=== PATIENT | male | born 1935 | race Caucasian/White ===

== ENCOUNTER → 2016-09-15 | Outpatient (CLI) | payer MEDICARE, OTHER ==
[2016-09-15 18:04] LABS: ABSOLUTE BASOPHILS # (AUTO) 0.1 10^3/uL (0.0-0.2); ABSOLUTE EOSINOPHILS # (AUTO) 0.5 10^3/uL (0.0-0.6); ABSOLUTE LYMPHOCYTES (AUTO) 0.8 10^3/uL (0.5-4.7); ABSOLUTE MONOCYTES (AUTO) 0.9 10^3/uL (0.1-1.4); ABSOLUTE NEUT (AUTO) 4.8 10^3/uL (1.7-8.2); BASOPHILS % (AUTO) 1.1 % (0-2); EOSINOPHILS % (AUTO) 6.8 % (0-6); HEMATOCRIT 39.8 % (37.9-51.0); HEMOGLOBIN 12.9 g/dL (13.5-17.0); HGB HCT DIFFERENCE -1.1; MEAN CORPUSCULAR HEMOGLOBIN 27.9 pg (27.0-33.4); MEAN CORPUSCULAR HGB CONC 32.5 g/dL (32.0-36.0); MEAN CORPUSCULAR VOLUME 86 fl (80-97); MONOCYTES % (AUTO) 13.4 % (3-13); RED BLOOD COUNT 4.64 10^6/uL (4.35-5.55); RED CELL DISTRIBUTION WIDTH 18.3 % (11.5-14.0); SEGMENTED NEUTROPHILS % (AUTO) 67.7 % (42-78)
[2016-09-15 18:09] LABS: PROTHROMBIN TIME 13.3 SEC (11.4-15.4)
[2016-09-15 18:09] LABS: APPEARANCE,URINE CLEAR; BILIRUBIN,URINE NEGATIVE (NEGATIVE); GLUCOSE, URINE NEGATIVE (NEGATIVE); KETONES,URINE NEGATIVE (NEGATIVE); LEUKOCYTE ESTERASE,URINE NEGATIVE (NEGATIVE); NITRITE,URINE NEGATIVE (NEGATIVE); PROTEIN,URINE NEGATIVE (NEGATIVE); UROBILINOGEN,URINE NEGATIVE mg/dL (<2.0)
[2016-09-15 18:16] LABS: ANION GAP 14 (5-19); BLOOD UREA NITROGEN 26 mg/dL (7-20); CALCIUM 9.2 mg/dL (8.4-10.2); CARBON DIOXIDE 30 mmol/L (22-30); CHLORIDE 103 mmol/L (98-107); CREATININE RESULT 1.95 mg/dL (0.52-1.25); GLUCOSE 95 mg/dL (75-110); MAGNESIUM 2.1 mg/dL (1.6-2.3); POTASSIUM 3.8 mmol/L (3.6-5.0); SODIUM 146.6 mmol/L (137-145)
== END ==
LOC: OD 16:32
PROVIDERS: ATTEND Internal Medicine Cardiovascular Disease
DX: I50.9 Heart failure, unspecified (principal)
CPT/HCPCS: 36415; 80048; 81001; 83735; 85025; 85610

== ENCOUNTER 2017-03-18 14:26 | Inpatient (IN) | payer MEDICARE, OTHER ==
--- NOTE | 2017-03-18 14:31 | ER Document Report ---
ED Neuro Symptoms/Deficit - General Mode of Arrival: Medic Information source: Patient TRAVEL OUTSIDE OF THE [place] IN LAST 30 DAYS: No <JIGNESH FORBES - Last Filed: 03/20/17 18:40> <CURTIS OROZCO - Last Filed: 03/24/17 22:58> - General Stated Complaint: UNRESPONSIVE Notes: Patient is a 81 year old female that presents to the emergency department today with complaints of stroke-like symptoms. According to EMS, the patient's last known well was last night. EMS states the patient had no right sided movement for them and had a lateral left sided gaze. Patient was also aphasic the entire time with EMS. Patient is on Brilenta for A-fib. Son at bedside is not sure if the patient has or has not been taking his medications. Patient had a cardiac arrest in June of 2016 but has recovered from this quite well. Son states the patient has been swimming every morning and staying quite active since this cardiac event. History is limited secondary to the patient being aphasic. (JIGNESH FORBES) - Related Data Allergies/Adverse Reactions: No Known Allergies Allergy (Verified 03/18/17 14:53) Home Medications: Current Home Medications Atorvastatin Calcium [Lipitor 80 mg Tablet] 80 mg PO DAILY 03/18/17 [History] Carvedilol [Coreg 12.5 mg Tablet] 12.5 mg PO Q12 03/18/17 [History] Furosemide [Lasix 20 mg Tablet] 20 mg PO QAM 03/18/17 [History] Montelukast Sodium [Singulair 10 mg Tablet] 10 mg PO QPM 03/18/17 [History] Omeprazole 20 mg PO BID 03/18/17 [History] Potassium Chloride 20 meq PO DAILY 03/18/17 [History] Sacubitril/Valsartan [Entresto 49 mg/51 mg Tablet] 1 tab PO DAILY 03/18/17 [ History] Tamsulosin HCl [Flomax 0.4 mg Cap.sr] 0.8 mg PO DAILY 03/18/17 [History] Ticagrelor [Brilinta 90 mg Tablet] 90 mg PO BID 03/18/17 [History] Past Medical History - General Information source: [facility] Records Cannot obtain history due to: Altered mental status - Social History Smoking Status: Unknown if Ever Smoked Cigarette use (# per day): No Frequency of alcohol use: None Drug Abuse: None Family History: Reviewed & Not Pertinent - Past Medical History Cardiac Medical History: Reports: Hx Atrial Fibrillation Past Surgical History: Reports: Hx Pacemaker - w/ defib <JIGNESH FORBES - Last Filed: 03/20/17 18:40> Review of Systems - Review of Systems -: Yes ROS unobtainable due to patient's medical condition <JIGNESH FORBES - Last Filed: 03/20/17 18:40> Physical Exam <JIGNESH FORBES - Last Filed: 03/20/17 18:40> - Neurological Speech: Expressive aphasia Cranial nerves: Facial palsy - R Motor strength normal: LUE, LLE. No: RUE, RLE Additional motor exam normals: No: Equal expediter <CURTIS OROZCO - Last Filed: 03/24/17 22:58> - Vital signs Vitals: Pulse Resp BP Pulse Ox 75 18 178/112 H 97 03/18/17 14:31 03/18/17 14:31 03/18/17 14:31 03/18/17 14:31 - Notes Notes: Physical Exam: General: Left sided gaze, non-verbal. HEENT: Normocephalic. PERRL. Spontaneously opens eyes with left sided gaze. Oropharynx clear. Tongue laceration consistent with bite keshav. Dry mucous membranes. Neck: Supple. Non-tender. Respiratory: No respiratory distress. Clear and equal breath sounds bilaterally. Cardiovascular: Regular rate and rhythm. Abdominal: Normal Inspection. Non-tender. No distension. Normal Bowel Sounds. Back: Non-tender. No deformity or step off. Extremities: Moves left arm, left leg, and now right leg, no right arm movement. Upper extremities: see above Lower extremities: see above Neurological: Non-verbal. Left sided gaze. Psychological: unable to assess Skin: Warm. Dry. Normal color. (JINGESH FORBES) Course - Laboratory Result Diagrams: 03/20/17 05:36 03/18/17 14:36 <JIGNESH FORBES - Last Filed: 03/20/17 18:40> - Laboratory Result Diagrams: 03/23/17 06:24 03/23/17 06:24 <CURTIS OROZCO - Last Filed: 03/24/17 22:58> - Re-evaluation Re-evalutation: 03/18/17 Patient is a 81-year-old male who presents with right-sided weakness, right- sided facial droop, and left gaze initially. CT is showing an acute left MCA stroke. Patient is outside the window for lytics. Patient has been discussed with family. Patient will be referred to the hospitalist service. I have contacted Dr. Cuevas who states that he has not seen the patient recently. Dr. Guillen will admit the patient. Stable time of admission. No recommendations at this time. (CURTIS OROZCO) - Vital Signs Vital signs: Temp Pulse Resp BP Pulse Ox 99.1 F 60 16 144/72 H 91 L 03/24/17 19:42 03/24/17 19:42 03/24/17 19:42 03/24/17 19:42 03/24/17 19:42 - Laboratory Laboratory results interpreted by me: 03/18/17 03/18/17 03/18/17 14:36 14:36 14:36 RDW 16.6 H Seg Neutrophils % 84.8 H Lymphocytes % 6.1 L APTT 37.5 H Creatinine 1.39 H Est GFR (Non-Af Amer) 49 L Glucose 114 H Total Bilirubin 1.6 H Direct Bilirubin 0.5 H Urine Ketones 03/18/17 14:56 RDW Seg Neutrophils % Lymphocytes % APTT Creatinine Est GFR (Non-Af Amer) Glucose Total Bilirubin Direct Bilirubin Urine Ketones TRACE H Critical Care Note - Critical Care Note Total time excluding time spent on procedures (mins): 45 - Evaluation and management of acute stroke, counseling patient and family, coordination of admission <CURTIS OROZCO - Last Filed: 03/24/17 22:58> Discharge <JIGNESH FORBES - Last Filed: 03/20/17 18:40> - Discharge Admitting Provider: Masha Guillen Unit Admitted: [facility] <CURITS OROZCO - Last Filed: 03/24/17 22:58> - Discharge Clinical Impression: Acute ischemic left MCA stroke Condition: Stable Disposition: ADMITTED INPATIENT Scribe Attestation: 03/19/17 00:00 I personally performed the services described in the documentation, reviewed and edited the documentation which was dictated to the scribe in my presence, and it accurately records my words and actions. (CURTIS OROZCO) Scribe Documentation - Scribe Written by Ramez:: Ramez Francisco, 03/20/2017 1840 acting as scribe for :: Marlo <JIGNESH FORBES - Last Filed: 03/20/17 18:40> ED Alteplase Inc/Exc Criteria - Inclusion Criteria: 1: Patient presented to ED within 3 hours of acute ischemic stroke symptom onset ? -: No 2: Did baseline CT exclude intracranial hemorrhage and/or other risk factors? -: Yes 3: Is the age of the patient 18 years of age or greater? -: Yes : If any of the above questions are answered "NO" then stop, patient is not a candidate for Alteplase, : If all of the above questions are answered "YES" then continue with Exclusion Criteria. - Exclusion Criteria: 1: Is there evidence of intracranial hemorrhage on baseline CT? -: No 2: Is there suspicion of subarachnoid hemorrhage (even if CT negative)? -: No 3: Is there a history of serious head trauma, recent previous stroke or NV within 3 months? 4: Does the patient have a clinical presentation consistent with NV or post-NV pericarditis? -: No 5: Is there history of intracranial hemorrhage? -: No 6: On repeated measurement is Systolic BP greater than 185mmHg or Diastolic BP greater that 110 mmHg and is aggressive treatment needed to reduce blood pressure to these limits (e.g. constant infusion of an anti-hypertensive)? -: No 7: Did the patient awake with stroke symptoms? 8: Has the patient had a lumbar puncture or an arterial puncture at a non- compressile site within 7 days? -: No 9: With in the last 14 days did the patient have surgery or major trauma? -: No 10: Is the patient or less than 2 weeks? -: No 11: Was there any active bleeding or acute trauma? -: No 12: Does the patient have intracranial neoplasm, arteriovenous malformation or aneurysm? -: No 13: Does the patient have abnormal glucose (less than 50 or greater than 400mg/ dl)? Record glucose in Comment. -: No 14: Patient has rapidly improving symptoms at the time Alteplase is to be Administered. -: No 15: Does the patient have any risks for bleeding, including but not limited to: a.: Current use of Coumadin with PT greater than 15 seconds or INR greater than 1.7. b.: Current use of Pradaxa (Dabigatran). c.: Heparin administereed within the past 48 hours and PTT elevated. d.: Platelet count less than 100,000/mm. e.: Major surgery or serious trauma within 14 days. f.: Gastrointestinal or gynecological urinary bleeding within 14 days. g.: Myocardial Infarction (NV) within 3 months. -: No : If the answer to any of the above questions is "YES" then stop, the patient is not a candidate for Alteplase. : If the answer to all of the above questions is "NO" then the patient may be eligible for the Administration of Alteplase. : If the patient is noted to have seizure activity at onset of Stroke symptoms; Consult Neurologist for further evaluation. - The patient is: -: Included and is eligible to receive Alteplase. *Initiate bed placement at higher level of care* --: No Reviewd risks & benefits of thrombolytic therapy: I have reviewed the risks and benefits of thrombolytic therapy with the patient and/or his/her family. -: Excluded and not eligible to receive Alteplase for the above exclusions. -: Excluded and not eligible to receive Alteplase for other reasons (specify in comments): --: Yes <CURTIS OROZCO Last Filed: 03/24/17 22:58>
[2017-03-18 14:51] LABS: ABSOLUTE BASOPHILS # (AUTO) 0.1 10^3/uL (0.0-0.2); ABSOLUTE LYMPHOCYTES (AUTO) 0.5 10^3/uL (0.5-4.7); ABSOLUTE MONOCYTES (AUTO) 0.6 10^3/uL (0.1-1.4); ABSOLUTE NEUT (AUTO) 6.9 10^3/uL (1.7-8.2); BASOPHILS % (AUTO) 0.8 % (0-2); EOSINOPHILS % (AUTO) 0.6 % (0-6); HEMATOCRIT 41.3 % (37.9-51.0); HEMOGLOBIN 13.8 g/dL (13.5-17.0); HGB HCT DIFFERENCE 0.1; LYMPHOCYTES % (AUTO) 6.1 % (13-45); MEAN CORPUSCULAR HEMOGLOBIN 28.4 pg (27.0-33.4); MEAN CORPUSCULAR HGB CONC 33.5 g/dL (32.0-36.0); MEAN CORPUSCULAR VOLUME 85 fl (80-97); MONOCYTES % (AUTO) 7.7 % (3-13); RED BLOOD COUNT 4.86 10^6/uL (4.35-5.55); RED CELL DISTRIBUTION WIDTH 16.6 % (11.5-14.0); SEGMENTED NEUTROPHILS % (AUTO) 84.8 % (42-78); WHITE BLOOD COUNT 8.2 10^3/uL (4.0-10.5)
[2017-03-18 14:53] LABS: PROTHROMBIN TIME 13.7 SEC (11.4-15.4)
[2017-03-18 14:54] LABS: PARTIAL THROMBOPLASTIN TIME 37.5 SEC (23.5-35.8)
[2017-03-18 14:56] LABS: VENOUS BLOOD BASE EXCESS -0.8 mmol/L; VENOUS BLOOD HCO3 24.2 mmol/L (20-32); VENOUS BLOOD PH 7.39 (7.30-7.42)
--- NOTE | 2017-03-18 15:04 | RADIOLOGY REPORT (SQ) ---
EXAM DESCRIPTION: CT HEAD WITHOUT COMPLETED DATE/TIME: 03/18/2017 2:47 pm REASON FOR STUDY: AMS COMPARISON: None. TECHNIQUE: Axial images acquired through the brain without intravenous contrast. Images reviewed wi th bone, brain and subdural windows. Images stored on PACS. All CT scanners at this facility use dose modulation, iterative reconstruction, and/or weight based d osing when appropriate to reduce radiation dose to as low as reasonably achievable (ALARA). [facility]: Dose Right [facility]: CareDose [facility]: Dose Right [facility]: Teradose 4D [facility]: Smart Slated RADIATION DOSE: Up-to-date CT equipment and radiation dose reduction techniques were employed. CTDIv ol: 64.6 mGy. DLP: 1163 mGy-cm. mGy. LIMITATIONS: Mild motion artifact FINDINGS: VENTRICLES: Normal size and contour. CEREBRUM: There is subtle loss of sy-white differentiation, with low attenuation involving the left insular cortex, external capsule, and lateral basal ganglia. These changes are best shown on axial images 18-21. This is worrisome for acute ischemic change. No superimposed acute hemorrhage. The chronic appearing small cortical and subcortical white matter infarct in the left posterior front al region best shown on axial images 23-25. No CT evidence of acute intracranial hemorrhage. No mass effect or midline shift. These findings were called to Dr. Sellers, 1442 hours 03/18/2017. CEREBELLUM: No masses. No hemorrhage. No alteration of density. No evidence for acute infarction. EXTRAAXIAL SPACES: No fluid collections. No masses. ORBITS AND GLOBE: No intra- or extraconal masses. Normal contour of globe without masses. CALVARIUM: No fracture. PARANASAL SINUSES: No fluid or mucosal thickening. SOFT TISSUES: No mass or hematoma. OTHER: No other significant finding. IMPRESSION: Acute nonhemorrhagic left MCA distribution infarct involving the left insular cortex, ex ternal capsule and lateral basal ganglia COMMENT: Pertinent findings on the imaging study reported as a CRITICAL RESULT to CURTIS Reyes DO at14:42 on 03/18/2017. Category of Critical Result: CT stroke alert TECHNICAL DOCUMENTATION: JOB ID: [id number] Quality ID # [id number]: Final reports with documentation of one or more dose reduction techniques (e.g., Au tomated exposure control, adjustment of the mA and/or kV according to patient size, use of iterative reconstruction technique) 2010 [employer]- All Rights Reserved
--- NOTE | 2017-03-18 15:07 | RADIOLOGY REPORT (SQ) ---
EXAM DESCRIPTION: CHEST SINGLE VIEW COMPLETED DATE/TIME: 03/18/2017 2:50 pm REASON FOR STUDY: AMS COMPARISON: None. EXAM PARAMETERS: NUMBER OF VIEWS: One view. TECHNIQUE: Single frontal radiographic view of the chest acquired. RADIATION DOSE: NA LIMITATIONS: None. FINDINGS: LUNGS AND PLEURA: Pulmonary vascular congestion with mild pulmonary edema. MEDIASTINUM AND HILAR STRUCTURES: No masses. Contour normal. HEART AND VASCULAR STRUCTURES: Cardiomegaly. BONES: No acute findings. HARDWARE: pacemaker/defibrillator. OTHER: No other significant finding. IMPRESSION: Cardiomegaly with mild pulmonary edema. TECHNICAL DOCUMENTATION: JOB ID: [id number]
[2017-03-18 15:18] LABS: APPEARANCE,URINE CLEAR; BILIRUBIN,URINE NEGATIVE (NEGATIVE); GLUCOSE, URINE NEGATIVE (NEGATIVE); KETONES,URINE TRACE mg/dL (NEGATIVE); LEUKOCYTE ESTERASE,URINE NEGATIVE (NEGATIVE); NITRITE,URINE NEGATIVE (NEGATIVE); PROTEIN,URINE NEGATIVE (NEGATIVE); URINE SPECIFIC GRAVITY 1.006; UROBILINOGEN,URINE NEGATIVE mg/dL (<2.0)
[2017-03-18 15:18] LABS: ALANINE AMINOTRANSFERASE 27 U/L (21-72); ALBUMIN 4.2 g/dL (3.5-5.0); ALKALINE PHOSPHATASE 117 U/L (38-126); ANION GAP 13 (5-19); ASPARTATE AMINO TRANSFERASE 18 U/L (17-59); BILIRUBIN,DIRECT 0.5 mg/dL (0.0-0.4); BILIRUBIN,TOTAL 1.6 mg/dL (0.2-1.3); BLOOD UREA NITROGEN 19 mg/dL (7-20); CALCIUM 9.3 mg/dL (8.4-10.2); CARBON DIOXIDE 25 mmol/L (22-30); CHLORIDE 107 mmol/L (98-107); CREATINE KINASE 64 U/L (55-170); CREATININE RESULT 1.39 mg/dL (0.52-1.25); GLUCOSE 114 mg/dL (75-110); POTASSIUM 3.9 mmol/L (3.6-5.0); SODIUM 144.8 mmol/L (137-145); TOTAL PROTEIN 7.8 g/dL (6.3-8.2)
[2017-03-18 15:30] LABS: CREATINE KINASE MB 1.08 ng/mL (<4.55); TROPONIN I 0.015 ng/mL
[2017-03-18] MEDS ORDERED: DEXTROSE 40% GEL 15 GM TUBE PO PRN ×2 (18:16)
[2017-03-18] MEDS ORDERED: GLUCAGON,HUMAN RECOMB 1 MG INJ SUBCUT PRN (18:16)
[2017-03-18] MEDS ORDERED: DEXTROSE 50%-WATER 25 GM/50 ML DISP.SYRIN IV PRN ×2 (18:16)
[2017-03-18] MEDS ORDERED: ONDANSETRON HCL INJ/PF 4 MG/2 ML SDV IV PRN (18:21)
[2017-03-18] MEDS ORDERED: ACETAMINOPHEN 650 MG SUPP.RECT PR PRN (18:21)
[2017-03-18] MEDS ORDERED: METOPROLOL TARTRATE PF/INJ 5 MG/5 ML SDV IV PRN (18:25)
[2017-03-18] MEDS: NORMAL SALINE 1000 ML 1,000 ML IV PRN (23:30)
[2017-03-19] MEDS: NORMAL SALINE 1000 ML 1,000 ML IV PRN ×2 (00:42→14:48)
[2017-03-19 06:57] LABS: CHOLESTEROL 168.99 mg/dL (0-200); Direct HDL 44 mg/dL (>40); TRIGLYCERIDES 92 mg/dL (<150)
[2017-03-19 07:08] LABS: DIRECT LDL 102 mg/dL (<100)
[2017-03-19] MEDS ORDERED: ENOXAPARIN SODIUM INJ 30 MG/0.3 ML DISP.SYRIN SUBCUT SCH (10:00)
--- NOTE | 2017-03-19 11:50 | PDOC H&P ---
History of Present Illness Admission Date/PCP: 03/18/17 18:16 dr crane Patient complains of: found down, nonverbal and not moving his Rt side History of Present Illness: KEVAN LACKEY is a 81 year old male with multiple medical problems dominated by recent (06/2016) cardiac arrest due to LAD occlusion saved by emergent PTCA and stenting at [facility] but with complicated recovery due to new onset afib, 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 He is normally very active now, engaged in swimming at the pool for exercise and to aid in weight loss and recovery. He was last seen and heard from the evening before presentation by his live-in grandson, who would normally spend the night but did not due to personal reasons and who arrived the morning of 03/18 only to find his grandfather lying on the bathroom floor grunting and unable to move. His eyes were open but he didn't seem to respond, couldn't talk and EMS called to find him with Rt hemiparesis and hemineglect transporting him to the hospital. Here ct head shows no bleed but suspicion for Lf MCA distribution acute infarct involving multiple regions/lobes as likely explanation. He is well outside the window for tPa and not a candidate anyway due to ongoing Brillinta use and recent GIB. We were asked to admit the patient for further eval and management. He remains nonverbal so hx is obtained from review of the chart and his son. Past Medical History Cardiac Medical History: Reports: Atrial Fibrillation - not on full anticoagulation due to need for Brillinta and recent GIB, Congestive Heart Failure, Myocardial Infarction, Hyperlipidema, Hypertension Pulmonary Medical History: Reports: None Neurological Medical History: Denies: Hemorrhagic CVA, Ischemic CVA, Seizures Endocrine Medical History: Reports: None Renal/ Medical History: Reports: Other - BPH Malignancy Medical History: Reports: None Psychiatric Medical History: Reports: None Past Surgical History Past Surgical History: Reports: Cardiac Catheterization, Pacemaker - w/ defib Social History Information Source: Relative Smoking Status: Never Smoker Frequency of Alcohol Use: Rare Hx Recreational Drug Use: No Drugs: None Hx Prescription Drug Abuse: No - Advance Directive Resuscitation Status: Full Code Family History Family History: Reviewed & Not Pertinent. denies: CVA Parental Family History Reviewed: Yes Children Family History Reviewed: Yes Sibling(s) Family History Reviewed.: Yes Medication/Allergy Home Medications: Atorvastatin Calcium [Lipitor 80 mg Tablet] 80 mg PO DAILY 03/18/17 Carvedilol [Coreg 12.5 mg Tablet] 12.5 mg PO Q12 03/18/17 Furosemide [Lasix 20 mg Tablet] 20 mg PO QAM 03/18/17 Montelukast Sodium [Singulair 10 mg Tablet] 10 mg PO QPM 03/18/17 Omeprazole 20 mg PO BID 03/18/17 Potassium Chloride 20 meq PO DAILY 03/18/17 Sacubitril/Valsartan [Entresto 49 mg/51 mg Tablet] 1 tab PO DAILY 03/18/17 Tamsulosin HCl [Flomax 0.4 mg Cap.sr] 0.8 mg PO DAILY 03/18/17 Ticagrelor [Brilinta 90 mg Tablet] 90 mg PO BID 03/18/17 Allergies/Adverse Reactions: No Known Allergies Allergy (Verified 03/18/17 14:53) Review of Systems ROS unobtainable: Due to mental status Physical Exam Vital Signs: Temp Pulse Resp BP Pulse Ox 98.1 F 61 20 152/52 H 98 03/19/17 07:35 03/19/17 08:00 03/19/17 08:00 03/19/17 08:00 03/19/17 08:00 Intake & Output 03/18/17 03/19/17 03/20/17 06:59 06:59 06:59 Intake Total 450 Output Total 1650 Balance -1200 Weight 96.1 kg General appearance: PRESENT: no acute distress - nonverbal, obese, well- developed, well-nourished Head exam: PRESENT: atraumatic, normocephalic Eye exam: PRESENT: PERRLA. ABSENT: conjunctival injection, EOMI - left lateral gaze minimally improved, scleral icterus Mouth exam: PRESENT: dry mucosa, laceration - tongue with crusted blood Right corner, neck supple Neck exam: PRESENT: full ROM. ABSENT: carotid bruit, lymphadenopathy, tenderness, tracheal deviation Respiratory exam: PRESENT: clear to auscultation duyen. ABSENT: accessory muscle use Cardiovascular exam: PRESENT: irregular rhythm - afib on monitor. ABSENT: systolic murmur Pulses: PRESENT: normal carotid pulses, normal radial pulses, normal dorsalis pedis pul Vascular exam: PRESENT: normal capillary refill GI/Abdominal exam: PRESENT: normal bowel sounds, soft. ABSENT: organolmegaly, tenderness - no grimace Rectal exam: PRESENT: normal inspection Gentrourinary exam: ABSENT: scrotal swelling Extremities exam: PRESENT: +1 edema. ABSENT: calf tenderness Musculoskeletal exam: PRESENT: normal inspection. ABSENT: tenderness Neurological exam: PRESENT: alert, altered, awake, aphasic, other - posturing Rt hand, Rt foot drop, flaccid Rt arm and leg otherwise with no movement; will not follow commands, at times seems to be hallucinating by reaching into air with left arm. ABSENT: CN II-XII grossly intact - Rt facial droop, ptosis Psychiatric exam: ABSENT: anxious Focused psych exam: ABSENT: psychomotor agitation, restlessness Skin exam: PRESENT: dry, warm Results Laboratory Results: 03/19/17 06:00 Triglycerides 92 Cholesterol 168.99 LDL Cholesterol Direct 102 H VLDL Cholesterol 18.0 HDL Cholesterol 44 03/19/17 06:00 Troponin I 0.039 EKG Comments: afib without ischemic changes Impressions: Chest X-Ray 03/18/17 14:31 IMPRESSION: Cardiomegaly with mild pulmonary edema. Head CT 03/18/17 14:31 IMPRESSION: Acute nonhemorrhagic left MCA distribution infarct involving the left insular cortex, external capsule and lateral basal ganglia Status: Image reviewed by me - agree with rads, i see the area of concern Assessment & Plan - Diagnosis (1) Acute ischemic left MCA stroke Is this a current diagnosis for this admission?: YesPlan: ct head with subtle findings that are borne out on physical exam. his afib raises his risk for such an event even in the presence of brillinta. will ck echo, monitor HR and allow permissive HTN for first 48 hrs. If there is a thrombus suspected, starting anticoagulation is fraught with danger as his risk of hemorrhage and hemorrhagic conversion is quite high given suspected size of neurologic territory involved, hx of prior GIB and continued use of antiplt to keep his stent open. This was discussed with his son present who wishes to default to his brother arriving from [place] who is a physician and better equipped to help make those decisions. repeat ct in morning with contrast and include vessels of his neck to eval for stenosis, aneurysm, dissection, etc. Give rectal ASA for now, it is clear to me that he cannot at present protect his airway for meds or feedings. will have ST/PT/OT eval in morning. ck lipids and add high dose statin when able. prognosis is guarded and I suspect he will worsen given signs I see; furthermore , we have to use rectal ASA to keep his stent open, not sure of its effectiveness so he is at risk for stent occlusion and sudden cardiac . (2) Tucker-neglect of right side Is this a current diagnosis for this admission?: YesPlan: he is showing at least minimal signs of improvement, he can look past midline at least but this suggest a large territory infarct, will know more as workup completes (3) HTN (hypertension) Is this a current diagnosis for this admission?: YesPlan: allow permissive HTN for the first 48 hrs, keep <190/100 if possible (4) ASCVD (arteriosclerotic cardiovascular disease) Is this a current diagnosis for this admission?: YesPlan: chg to rectal ASA and will have to hold his oral meds until he is cleared by ST or alternate feeding route established (5) Cardiomyopathy Qualifiers: Cardiomyopathy type: ischemic Qualified Code(s): I25.5 - Ischemic cardiomyopathy Is this a current diagnosis for this admission?: YesPlan: unclear what his EF is, will try to get old records from [facility] to clarify. (6) Afib Qualifiers: Atrial fibrillation type: chronic Qualified Code(s): I48.2 - Chronic atrial fibrillation Is this a current diagnosis for this admission?: YesPlan: rate control at present, will add prn lopressor until able to treat his BP or he is taking oral again. no anticoagulation until echo results available and then only with blessings of his family due to risk for bleeding. - Time Time Spent: Greater than 70 Minutes Medications reviewed and adjusted accordingly: Yes - Inpatient Certification Based on my medical assessment, after consideration of the patient's comorbidities, presenting symptoms, or acuity I expect that the services needed warrant INPATIENT care.: Yes I certify that my determination is in accordance with my understanding of Medicare's requirements for reasonable and necessary INPATIENT services [42 CFR 412.3e].: Yes Medical Necessity: Significant Comorbidiites Make Outpatient Treatment Too Risky , Need For Continuous Telemetry Monitoring, Need for Neurological Checks, Risk of Complication if Not Cared For in Hospital
--- NOTE | 2017-03-19 12:05 | PDOC PROGRESS REPORT ---
Subjective Progress Note for:: 03/19/17 Subjective:: reason for visit: f/u CVA, HTN, CAD hospital course: KEVAN LACKEY is a 81 year old male with multiple medical problems dominated by recent (06/2016) cardiac arrest due to LAD occlusion saved by emergent PTCA and stenting at [facility] but with complicated recovery due to new onset afib, 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 He is normally very active now, engaged in swimming at the pool for exercise and to aid in weight loss and recovery. He was last seen and heard from the evening before presentation by his live-in grandson, who would normally spend the night but did not due to personal reasons and who arrived the morning of 03/18 only to find his grandfather lying on the bathroom floor grunting and unable to move. His eyes were open but he didn't seem to respond, couldn't talk and EMS called to find him with Rt hemiparesis and hemineglect transporting him to the hospital. Here ct head shows no bleed but suspicion for Lf MCA distribution acute infarct involving multiple regions/lobes as likely explanation. He is well outside the window for tPa and not a candidate anyway due to ongoing Brillinta use and recent GIB. We were asked to admit the patient for further eval and management. He remains nonverbal so hx is obtained from review of the chart and his son. He actually appears a bit worse to me this morning, his Rt facial droop is much more pronounced, he is less interactive and ST was unable to get him to participate, in fact he choked on first little trial of food/drink. no family at bedside at present. ROS: unobtainable due to mental state. Physical Exam Vital Signs: Temp Pulse Resp BP Pulse Ox 98.1 F 61 20 152/52 H 98 03/19/17 07:35 03/19/17 08:00 03/19/17 08:00 03/19/17 08:00 03/19/17 08:00 Intake & Output 03/18/17 03/19/17 03/20/17 06:59 06:59 06:59 Intake Total 450 Output Total 1650 Balance -1200 Weight 96.1 kg General appearance: PRESENT: no acute distress, obese, well-developed, well- nourished Head exam: PRESENT: atraumatic, normocephalic Eye exam: PRESENT: PERRLA, other - rt eye ptosis. ABSENT: conjunctival injection, EOMI - not tracking past midline again with left lateral gaze palsy, scleral icterus Mouth exam: PRESENT: dry mucosa. ABSENT: neck supple Neck exam: ABSENT: carotid bruit, lymphadenopathy, tracheal deviation Respiratory exam: PRESENT: clear to auscultation duyen. ABSENT: accessory muscle use Cardiovascular exam: PRESENT: irregular rhythm. ABSENT: systolic murmur Pulses: PRESENT: normal carotid pulses, normal radial pulses Vascular exam: PRESENT: normal capillary refill GI/Abdominal exam: PRESENT: normal bowel sounds, soft. ABSENT: tenderness - no grimace Extremities exam: PRESENT: +1 edema Neurological exam: PRESENT: altered, awake, CN II-XII grossly intact - severe Rt facial droop, aphasic - only grunts at times, makes no effort to follow commands or respond, other - Rt arm and leg will withdraw ever so slightly with attempts at passive ROM, muscle tone no longer flaccid but still persistent Rt hemiparesis and posturing of the Right hand. ABSENT: alert, reflexes normal - diminished but symmetric Focused psych exam: ABSENT: psychomotor agitation, restlessness Results Laboratory Results: 03/19/17 06:00 Triglycerides 92 Cholesterol 168.99 LDL Cholesterol Direct 102 H VLDL Cholesterol 18.0 HDL Cholesterol 44 03/19/17 06:00 Troponin I 0.039 Assessment & Plan - Diagnosis (1) Acute ischemic left MCA stroke Is this a current diagnosis for this admission?: YesPlan: worse; ct head with subtle findings that are borne out on physical exam. his afib raises his risk for such an event even in the presence of brillinta. f/u echo, CTA head and neck; monitor HR and allow permissive HTN for first 48 hrs. If there is a thrombus suspected, starting anticoagulation is fraught with danger as his risk of hemorrhage and hemorrhagic conversion is quite high given suspected size of neurologic territory involved, hx of prior GIB and continued use of antiplt to keep his stent open. Give rectal ASA for now, it is clear to me that he cannot at present protect his airway for meds or feedings. lipids show his LDL is not well controlled for someone with recent LAD occlusion and stent, will add high dose statin when able. continue ST/PT/OT prognosis is guarded and I suspect he will worsen given signs I see; furthermore , we have to use rectal ASA to keep his stent open, not sure of its effectiveness so he is at risk for stent occlusion and sudden cardiac . (2) Tucker-neglect of right side Is this a current diagnosis for this admission?: YesPlan: worse; not much more can be done at this point, awaiting results from further testing (3) HTN (hypertension) Is this a current diagnosis for this admission?: YesPlan: allow permissive HTN for the first 48 hrs, keep <190/100 if possible (4) ASCVD (arteriosclerotic cardiovascular disease) Is this a current diagnosis for this admission?: YesPlan: chg to rectal ASA and will have to hold his oral meds until he is cleared by ST or alternate feeding route established. f/u old records (5) Cardiomyopathy Qualifiers: Cardiomyopathy type: ischemic Qualified Code(s): I25.5 - Ischemic cardiomyopathy Is this a current diagnosis for this admission?: Yes (6) Afib Qualifiers: Atrial fibrillation type: chronic Qualified Code(s): I48.2 - Chronic atrial fibrillation Is this a current diagnosis for this admission?: YesPlan: rate control at present, will add prn lopressor until able to treat his BP or he is taking oral again. no anticoagulation until echo results available and then only with blessings of his family due to risk for bleeding. - Time Time Spent with patient: 25-34 minutes
--- NOTE | 2017-03-19 13:09 | EKG REPORT ---
SEVERITY:- ABNORMAL ECG - AFIB/FLUT AND V-PACED COMPLEXES BORDERLINE T WAVE ABNORMALITIES : Confirmed by: Carlos Ceron 19-Mar-2017 13:07:51
[2017-03-19] MEDS: PANTOPRAZOLE SODIUM 40 MG VIAL IV SCH (14:48)
[2017-03-19] MEDS: ASPIRIN 300 MG SUPP, RECTAL PR SCH (14:48)
--- NOTE | 2017-03-19 16:18 | RADIOLOGY REPORT (SQ) ---
EXAM DESCRIPTION: CTA NECK COMPLETED DATE/TIME: 03/19/2017 3:46 pm REASON FOR STUDY: cva, eval for stenosis, dissection COMPARISON: None. TECHNIQUE: Axial dynamic scanning technique with dynamic contrast enhancement through the extra-crane oiler nial carotid and vertebral arteries. Multiplanar reconstruction. 3-D MIPS and Volume-rendered imag es acquired at the workstation and saved to PACS. Images are reviewed in soft tissue, bone, lung w indows. All CT scanners at this facility use dose modulation, iterative reconstruction, and/or weight based d osing when appropriate to reduce radiation dose to as low as reasonably achievable (ALARA). [facility]: Dose Right [facility]: CareDose [facility]: Dose Right [facility]: Teradose 4D [facility]: Contextool CONTRAST TYPE AND DOSE: contrast/concentration: Isovue 370.00 mg/ml; Total Contrast Delivered: 79.9 ml; Total Saline Delivered: 53.9 ml RENAL FUNCTION: Creatinine 1.39 LIMITATIONS: None. FINDINGS: AORTIC ARCH: Normal three-vessel origin. Bilateral subclavian arteries are patent. No d issection. RIGHT CAROTIDS: Patent common, internal and external carotid arteries without suggestion of significa nt stenosis or irregular plaque. No dissection. There is mild calcific atherosclerotic plaquing at the level of the carotid bifurcation without significant stenosis being identified RIGHT VERTEBRAL: Patent. No dissection. LEFT CAROTIDS: Patent common, internal and external carotid arteries. There is calcific atherosclero tic plaquing at the level of the carotid bifurcation with a high-grade stenosis of the left internal carotid artery at its origin. LEFT VERTEBRAL: Patent. No dissection. OTHER: There appears to be a tiny amount of air in the right internal jugular vein presumably related to the contrast injection. Clinical correlation is recommended however. OTHER: 3-D reconstructions confirm findings. IMPRESSION: There is bilateral calcific atherosclerotic plaquing at the level of the carotid bifurca tions as noted above with a high-grade stenosis of the left internal carotid artery at its origin. O ther findings as noted above COMMENT: Quality ID #[id number]: Measurements of distal internal carotid diameter were used as the denomina tor for stenosis measurement. TECHNICAL DOCUMENTATION: JOB ID: [id number] Quality ID # 436: Final reports with documentation of one or more dose reduction techniques (e.g., Au tomated exposure control, adjustment of the mA and/or kV according to patient size, use of iterative reconstruction technique) 2010 [employer]- All Rights Reserved
--- NOTE | 2017-03-19 16:30 | RADIOLOGY REPORT (SQ) ---
EXAM DESCRIPTION: CTA HEAD COMPLETED DATE/TIME: 03/19/2017 3:46 pm REASON FOR STUDY: prob left MCA cva COMPARISON: None. TECHNIQUE: Post IV contrast scanning, thin section axial imaging through the brain to evaluate the a rterial structures. Source and MIP images are saved and reviewed on PACS. Advanced 3D imaging as volume-rendering, MIPs, SSD performed? yes All CT scanners at this facility use dose modulation, iterative reconstruction, and/or weight based d osing when appropriate to reduce radiation dose to as low as reasonably achievable (ALARA). [facility]: Dose Right [facility]: CareDose [facility]: Dose Right [facility]: Teradose 4D [facility]: Telebit CONTRAST TYPE AND DOSE: 80 mL Isovue 370 RENAL FUNCTION: Creatinine 1.39 LIMITATIONS: None. FINDINGS: [place]: The proximal anterior, middle, posterior cerebral arteries are all paten t. No evidence of aneurysm or focal stenosis. There is absent or diminished contrast opacification of the more distal portion of the left middle cerebral artery and there is decrease perfusion of the branches of the left middle cerebral artery. I am uncertain as to whether this is related to an occl usion or stenosis of the distal left middle cerebral artery. POSTERIOR CIRCULATION: The distal vertebral arteries are patent as is the basilar artery. No aneurysm . BRAIN: No gross enhancing lesions as visualized. The superior cerebral hemispheres are not included in the field of view. BONES: Intact as visualized. SINUSES: No fluid or mucosal thickening. OTHER: No other significant finding. IMPRESSION: NO CTA EVIDENCE OF STENOSIS OR ANEURYSM OF THE [place]. There is absent or dim inished contrast opacification of the more distal portion of the left middle cerebral artery is noted above and there is decrease perfusion of the branches of the left middle cerebral artery. I am unce rtain as to whether this is related to an occlusion or stenosis of the distal left middle cerebral ar fatimah. Other findings as noted above TECHNICAL DOCUMENTATION: JOB ID: [id number] Quality ID # 436: Final reports with documentation of one or more dose reduction techniques (e.g., Au tomated exposure control, adjustment of the mA and/or kV according to patient size, use of iterative reconstruction technique) 2010 [employer]- All Rights Reserved
[2017-03-19] MEDS ORDERED: NORMAL SALINE 1000 ML 1,000 ML with POTASSIUM CHLORIDE 20 MEQ, MAGNESIUM SULFATE 8 MEQ,... IV SCH ×5 (18:00)
--- NOTE | 2017-03-19 18:01 | XCELERA REPORT ---
[address] [address] Transthoracic Echocardiogram Report Name: KEVAN LACKEY Age: 81 yrs Gender: Male : 1935 Patient Status: Inpatient Patient Location: 3S\S\329\S\A Study Date: 03/19/2017 02:00 PM Height: 70 in Weight: 211 lb BSA: 2.1 m2 Procedure: A two-dimensional transthoracic echocardiogram with color flow and Doppler was performed. Study Quality: Technically suboptimal. Reason For Study: CVA with afib, eval for thrombus History: CVA with afib, eval for thrombus. Ordering Physician: THERESA CHERRY Performed By: Miri Varghese Interpretation Summary The left ventricle is moderately dilated. There is normal left ventricular wall thickness. LV EF is 30% Doppler measurements suggest normal left ventricular diastolic function There is severe global hypokinesis of the left ventricle. No gross thrombus, but not a good study for this. The left atrium is mildly dilated. There is no evidence of mitral valve prolapse. There is no mitral valve stenosis. There is a trace to mild amount of mitral regurgitation There is no aortic valve stenosis There is no LVOT obstruction. No aortic regurgitation is present. There is no tricuspid stenosis. There is a trace to mild amount of tricuspid regurgitation There is mild pulmonary hypertension by echo RVSP is 41 mm of Hg , with RA mean of 10. There is no pericardial effusion. MMode/2D Measurements \T\ Calculations RVDd: 2.9 cm LVIDd: 6.9 cmFS: 30.0 % Ao root diam: 2.9 cm IVSd: 1.0 cm LVIDs: 4.8 cmEDV(Teich): 245.8 ml LVPWd: 1.0 cmESV(Teich): 108.5 ml Ao root area: 6.6 cm2 EF(Teich): 55.9 % LVOT diam: 2.1 cm LVOT area: 3.6 cm2 Doppler Measurements \T\ Calculations MV E max edelmira: MV dec slope: Ao V2 max: LV V1 max P.0 cm/sec 776.4 cm/sec2 172.2 cm/sec 7.2 mmHg MV A max edelmira: MV dec time: Ao max PG: LV V1 max: 69.5 cm/sec 0.14 sec 11.9 mmHg 134.4 cm/sec MV E/A: 1.5 ALIDA(V,D): 2.8 cm2 PA V2 max: TR max edelmira: 97.1 cm/sec 276.0 cm/sec PA max P.8 mmHgTR max P.5 mmHg Left Ventricle The left ventricle is moderately dilated. There is normal left ventricular wall thickness. LV EF is 30%. Left ventricular systolic function is severely reduced. Doppler measurements suggest normal left ventricular diastolic function. There is severe global hypokinesis of the left ventricle. No gross thrombus, but not a good study for this. Right Ventricle The right ventricle is grossly normal size. There is a pacemaker lead in the right ventricle. Atria The right atrium is normal. The left atrium is mildly dilated. Mitral Valve There is no evidence of mitral valve prolapse. There is no vegetation seen on the mitral valve. There is no mitral valve stenosis. There is a trace to mild amount of mitral regurgitation. Aortic Valve There is no aortic valvular vegetation. There is no aortic valve stenosis. There is no LVOT obstruction. No aortic regurgitation is present. Tricuspid Valve There is no tricuspid stenosis. There is a trace to mild amount of tricuspid regurgitation. There is mild pulmonary hypertension by echo. RVSP is 41 mm of Hg , with RA mean of 10. Pulmonic Valve There is no pulmonic valvular stenosis. There is no pulmonic valvular regurgitation. Great Vessels The aortic root is not well visualized. Effusions There is no pericardial effusion. : THERESA CHERRY > Isidra Huffman
[2017-03-19] MEDS ORDERED: NORMAL SALINE 1000 ML 1,000 ML with POTASSIUM CHLORIDE 20 MEQ, MAGNESIUM SULFATE 8 MEQ,... IV ONE ×5 (20:00)
[2017-03-19] MEDS: ENOXAPARIN SODIUM INJ 100 MG/1 ML DISP.SYRIN SUBCUT SCH (21:38)
[2017-03-20 05:13] LABS: APPEARANCE,URINE CLEAR; BILIRUBIN,URINE NEGATIVE (NEGATIVE); GLUCOSE, URINE NEGATIVE (NEGATIVE); KETONES,URINE 80 mg/dL (NEGATIVE); LEUKOCYTE ESTERASE,URINE NEGATIVE (NEGATIVE); NITRITE,URINE NEGATIVE (NEGATIVE); PROTEIN,URINE 30 mg/dL (NEGATIVE); URINE SPECIFIC GRAVITY 1.018; UROBILINOGEN,URINE NEGATIVE mg/dL (<2.0)
[2017-03-20 06:02] LABS: HEMATOCRIT 40.8 % (37.9-51.0); HEMOGLOBIN 13.6 g/dL (13.5-17.0); MEAN CORPUSCULAR HEMOGLOBIN 28.5 pg (27.0-33.4); MEAN CORPUSCULAR HGB CONC 33.4 g/dL (32.0-36.0); MEAN CORPUSCULAR VOLUME 85 fl (80-97); RED BLOOD COUNT 4.79 10^6/uL (4.35-5.55); RED CELL DISTRIBUTION WIDTH 16.7 % (11.5-14.0); WHITE BLOOD COUNT 11.9 10^3/uL (4.0-10.5)
[2017-03-20] MEDS: POTASSI CL 20 MEQ/D5NS 1L 1,000 ML IV PRN (06:07)
[2017-03-20] MEDS: PANTOPRAZOLE SODIUM 40 MG VIAL IV SCH (10:11)
[2017-03-20] MEDS: ENOXAPARIN SODIUM INJ 100 MG/1 ML DISP.SYRIN SUBCUT SCH ×2 (10:12→21:18)
[2017-03-20] MEDS: ASPIRIN 300 MG SUPP, RECTAL PR SCH (10:14)
--- NOTE | 2017-03-20 13:09 | PDOC PROGRESS REPORT ---
Subjective Progress Note for:: 03/20/17 Subjective:: reason for visit: f/u CVA, HTN, CAD hospital course: KEVAN LACKEY is a 81 year old male with multiple medical problems dominated by recent (06/2016) cardiac arrest due to LAD occlusion saved by emergent PTCA and stenting at [facility] but with complicated recovery due to new onset afib, 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 He is normally very active now, engaged in swimming at the pool for exercise and to aid in weight loss and recovery. He was last seen and heard from the evening before presentation by his live-in grandson, who would normally spend the night but did not due to personal reasons and who arrived the morning of 03/18 only to find his grandfather lying on the bathroom floor grunting and unable to move. His eyes were open but he didn't seem to respond, couldn't talk and EMS called to find him with Rt hemiparesis and hemineglect transporting him to the hospital. Here ct head shows no bleed but suspicion for Lf MCA distribution acute infarct involving multiple regions/lobes as likely explanation. He is well outside the window for tPa and not a candidate anyway due to ongoing Brillinta use and recent GIB. We were asked to admit the patient for further eval and management. He remains nonverbal so hx is obtained from review of the chart and his son. Thursday his condition seems to have stabilized but not much in the way of improvement other than he is a bit more interactive with his environment but certainly not on command. His eyes are open and he is trying to get out of the bed but limited by a persistent Rt hemiparesis. He is able to move his hand and foot which is new. Rt facial droop not as prominent as before. still nonverbal. he can track me around the room. ROS: unobtainable due to mental state. Physical Exam Vital Signs: Temp Pulse Resp BP Pulse Ox 98.7 F 60 18 161/65 H 99 03/20/17 07:36 03/20/17 07:36 03/20/17 07:36 03/20/17 07:36 03/20/17 10:29 Intake & Output 03/19/17 03/20/17 03/21/17 06:59 06:59 06:59 Intake Total 450 2035 Output Total 1650 1650 Balance -1200 385 Weight 96.1 kg 100 kg General appearance: PRESENT: no acute distress, obese, well-developed, well- nourished Head exam: PRESENT: atraumatic, normocephalic Eye exam: PRESENT: PERRLA, other - rt eye ptosis less prominent. ABSENT: conjunctival injection, EOMI - will track past midline Mouth exam: PRESENT: dry mucosa. ABSENT: neck supple Neck exam: ABSENT: carotid bruit, lymphadenopathy, tracheal deviation Respiratory exam: PRESENT: clear to auscultation duyen. ABSENT: accessory muscle use Cardiovascular exam: PRESENT: irregular rhythm, rate controlled. ABSENT: systolic murmur Pulses: PRESENT: normal carotid pulses, normal radial pulses Vascular exam: PRESENT: normal capillary refill GI/Abdominal exam: PRESENT: normal bowel sounds, soft. ABSENT: tenderness - no grimace Extremities exam: PRESENT: trace edema Neurological exam: PRESENT: altered, awake, aphasic - only grunts at times, makes no effort to follow commands or respond, Rt arm and leg will withdraw ever so slightly with attempts at passive ROM, muscle tone no longer flaccid but still persistent Rt hemiparesis; reflexes severely diminished at patella; no ankle clonus Focused psych exam: ABSENT: psychomotor agitation, restlessness Results Laboratory Results: 03/20/17 05:36 03/20/17 03/20/17 03:55 05:36 WBC 11.9 H RBC 4.79 Hgb 13.6 Hct 40.8 MCV 85 MCH 28.5 MCHC 33.4 RDW 16.7 H Plt Count 218 Urine Color YELLOW Urine Appearance CLEAR Urine pH 6.0 Ur Specific [place] 1.018 Urine Protein 30 H Urine Glucose (UA) NEGATIVE Urine Ketones 80 H Urine Blood MODERATE H Urine Nitrite NEGATIVE Ur Leukocyte Esterase NEGATIVE Urine WBC (Auto) 8 Urine RBC (Auto) 11 03/19/17 06:00 Troponin I 0.039 Impressions: Chest X-Ray 03/18/17 14:31 IMPRESSION: Cardiomegaly with mild pulmonary edema. Head CT 03/18/17 14:31 IMPRESSION: Acute nonhemorrhagic left MCA distribution infarct involving the left insular cortex, external capsule and lateral basal ganglia Head CTA 03/19/17 00:00 IMPRESSION: NO CTA EVIDENCE OF STENOSIS OR ANEURYSM OF THE [place]. There is absent or diminished contrast opacification of the more distal portion of the left middle cerebral artery is noted above and there is decrease perfusion of the branches of the left middle cerebral artery. I am uncertain as to whether this is related to an occlusion or stenosis of the distal left middle cerebral artery. Other findings as noted above Neck CTA 03/19/17 00:00 IMPRESSION: There is bilateral calcific atherosclerotic plaquing at the level of the carotid bifurcations as noted above with a high-grade stenosis of the left internal carotid artery at its origin. Other findings as noted above Status: Imported from PACS Assessment & Plan - Diagnosis (1) Acute ischemic left MCA stroke Is this a current diagnosis for this admission?: YesPlan: stable; echo shows no thrombus or severe valvular disease, CTA head and neck show tight stenosis of the origin of left internal carotid artery. started full dose anticoagulation due to <30% estimated brain loss on imaging; continue rectal ASA for now, it is clear to me that he cannot protect his airway for meds or feedings. lipids show his LDL is not well controlled for someone with recent LAD occlusion and stent, will add high dose statin when able. continue ST/PT/OT prognosis is guarded and I suspect he will worsen given signs I see; furthermore , we have to use rectal ASA to keep his stent open, not sure of its effectiveness so he is at risk for stent occlusion and sudden cardiac . (2) Tucker-neglect of right side Is this a current diagnosis for this admission?: Yes (3) HTN (hypertension) Is this a current diagnosis for this admission?: Yes (4) ASCVD (arteriosclerotic cardiovascular disease) Is this a current diagnosis for this admission?: Yes (5) Cardiomyopathy Qualifiers: Cardiomyopathy type: ischemic Qualified Code(s): I25.5 - Ischemic cardiomyopathy Is this a current diagnosis for this admission?: Yes (6) Afib Qualifiers: Atrial fibrillation type: chronic Qualified Code(s): I48.2 - Chronic atrial fibrillation Is this a current diagnosis for this admission?: Yes (7) Carotid artery stenosis with cerebral infarction less than 8 weeks ago Is this a current diagnosis for this admission?: YesPlan: continue antiplt and anticoagulation monitoring for bleeding complication; add statin when able. will need vascular surgery consult when his condition stabilizes and if it improves enough to tolerate surgery. - Time Time Spent with patient: 35 or more minutes - 30 mins spent with his sons in consultation - Plan Summary Plan Summary: requesting a hospice conversation indicating that if he shows no signs of improvement in his ability to take by mouth that he would NOT want artificial feedings via tubes, IV or gastric.
[2017-03-20] MEDS: NORMAL SALINE 1000 ML 1,000 ML with POTASSIUM CHLORIDE 20 MEQ, MAGNESIUM SULFATE 8 MEQ,... IV SCH ×5 (17:43)
[2017-03-21] MEDS: ENOXAPARIN SODIUM INJ 100 MG/1 ML DISP.SYRIN SUBCUT SCH ×2 (10:02→21:31)
[2017-03-21] MEDS: ASPIRIN 300 MG SUPP, RECTAL PR SCH (10:04)
[2017-03-21] MEDS: PANTOPRAZOLE SODIUM 40 MG VIAL IV SCH (10:18)
--- NOTE | 2017-03-21 10:18 | PDOC PROGRESS REPORT ---
Subjective Progress Note for:: 03/21/17 Subjective:: reason for visit: f/u CVA, HTN, CAD hospital course: KEVAN LACKEY is a 81 year old male with multiple medical problems dominated by recent (06/2016) cardiac arrest due to LAD occlusion saved by emergent PTCA and stenting at [facility] but with complicated recovery due to new onset afib, 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 He is normally very active now, engaged in swimming at the pool for exercise and to aid in weight loss and recovery. He was last seen and heard from the evening before presentation by his live-in grandson, who would normally spend the night but did not due to personal reasons and who arrived the morning of 03/18 only to find his grandfather lying on the bathroom floor grunting and unable to move. His eyes were open but he didn't seem to respond, couldn't talk and EMS called to find him with Rt hemiparesis and hemineglect transporting him to the hospital. Here ct head shows no bleed but suspicion for Lf MCA distribution acute infarct involving multiple regions/lobes as likely explanation. He is well outside the window for tPa and not a candidate anyway due to ongoing Brillinta use and recent GIB. We were asked to admit the patient for further eval and management. He remains nonverbal so hx is obtained from review of the chart and his son. Thursday his condition seems to have stabilized but not much in the way of improvement other than he is a bit more interactive with his environment but certainly not on command. His eyes are open and he is trying to get out of the bed but limited by a persistent Rt hemiparesis. He is able to move his hand and foot which is new. Rt facial droop not as prominent as before. still nonverbal. he can track me around the room. he seems to do better when his boys are around to employment coach and encourage him. Thursday again no appreciable improvement that i can see. still no effort to follow commands, open his mouth or participate in his care. movements are random, he remains nonverbal. he has some limited movement of his hand and foot. ROS: unobtainable due to mental state. Physical Exam Vital Signs: Temp Pulse Resp BP Pulse Ox 99.5 F 60 20 165/66 H 97 03/21/17 03:49 03/21/17 07:00 03/21/17 03:49 03/21/17 03:49 03/21/17 03:49 Intake & Output 03/20/17 03/21/17 03/22/17 06:59 06:59 06:59 Intake Total 2035 480 Output Total 1650 1200 Balance 385 -720 Weight 100 kg 99.2 kg General appearance: PRESENT: no acute distress, obese, well-developed, well- nourished Head exam: PRESENT: atraumatic, normocephalic Eye exam: PRESENT: PERRLA, other - rt eye ptosis less prominent. ABSENT: conjunctival injection, EOMI - will track past midline Mouth exam: PRESENT: dry mucosa. ABSENT: neck supple Neck exam: ABSENT: carotid bruit, lymphadenopathy, tracheal deviation Respiratory exam: PRESENT: clear to auscultation duyen. ABSENT: accessory muscle use Cardiovascular exam: PRESENT: irregular rhythm, rate controlled. ABSENT: systolic murmur Pulses: PRESENT: normal carotid pulses, normal radial pulses Vascular exam: PRESENT: normal capillary refill GI/Abdominal exam: PRESENT: normal bowel sounds, soft. ABSENT: tenderness - no grimace Extremities exam: PRESENT: trace edema Neurological exam: PRESENT: altered, awake, aphasic - makes no effort to follow commands or respond, Rt arm and leg will withdraw slightly with attempts at passive ROM, muscle tone no longer flaccid but still persistent Rt hemiparesis; reflexes severely diminished at patella; no ankle clonus Focused psych exam: ABSENT: psychomotor agitation, restlessness Results Laboratory Results: 03/20/17 05:36 03/19/17 06:00 Troponin I 0.039 Assessment & Plan - Diagnosis (1) Acute ischemic left MCA stroke Is this a current diagnosis for this admission?: YesPlan: stable; echo shows no thrombus or severe valvular disease, CTA head and neck show tight stenosis of the origin of left internal carotid artery. started full dose anticoagulation due to <30% estimated brain loss on imaging; continue rectal ASA for now, it seems to me that he cannot protect his airway for meds or feedings. lipids show his LDL is not well controlled for someone with recent LAD occlusion and stent, will add high dose statin when able. continue ST/PT/OT prognosis is guarded and I suspect he will worsen given signs I see; furthermore , we have to use rectal ASA to keep his stent open, not sure of its effectiveness so he is at risk for stent occlusion and sudden cardiac . (2) Tucker-neglect of right side Is this a current diagnosis for this admission?: YesPlan: unchanged; not much more can be done at this point beyond what is mentioned above (3) HTN (hypertension) Is this a current diagnosis for this admission?: YesPlan: schedule low dose ACEi IV for now and ck renal function in am (4) ASCVD (arteriosclerotic cardiovascular disease) Is this a current diagnosis for this admission?: Yes (5) Cardiomyopathy Qualifiers: Cardiomyopathy type: ischemic Qualified Code(s): I25.5 - Ischemic cardiomyopathy Is this a current diagnosis for this admission?: Yes (6) Afib Qualifiers: Atrial fibrillation type: chronic Qualified Code(s): I48.2 - Chronic atrial fibrillation Is this a current diagnosis for this admission?: YesPlan: rate control at present, continue prn lopressor until able to treat his BP or he is taking oral again. continue anticoagulation (7) Carotid artery stenosis with cerebral infarction less than 8 weeks ago Is this a current diagnosis for this admission?: Yes - Time Time Spent with patient: 25-34 minutes - Plan Summary Plan Summary: overall prognosis is poor due to inability to feed and family has been clear about not wanting PEG or artificial feedings with hard stop of Thursday for him to show signs of involvement/improvement. Hospice consulted at their request, hoping to investigate whether services are appropriate.
[2017-03-21] MEDS: ENALAPRILAT DIHYDRATE INJ/PF 1.25 MG/1 ML SDV IV SCH ×3 (12:22→23:54)
[2017-03-21] MEDS: NORMAL SALINE 1000 ML 1,000 ML with POTASSIUM CHLORIDE 20 MEQ, MAGNESIUM SULFATE 8 MEQ,... IV SCH ×10 (17:30→21:31)
[2017-03-22] MEDS: ENALAPRILAT DIHYDRATE INJ/PF 1.25 MG/1 ML SDV IV SCH ×4 (05:45→23:59)
[2017-03-22 05:59] LABS: ANION GAP 13 (5-19); BLOOD UREA NITROGEN 19 mg/dL (7-20); CALCIUM 8.9 mg/dL (8.4-10.2); CARBON DIOXIDE 20 mmol/L (22-30); CHLORIDE 111 mmol/L (98-107); CREATININE RESULT 1.07 mg/dL (0.52-1.25); GLUCOSE 110 mg/dL (75-110); POTASSIUM 3.3 mmol/L (3.6-5.0); SODIUM 143.5 mmol/L (137-145)
[2017-03-22] MEDS: ENOXAPARIN SODIUM INJ 100 MG/1 ML DISP.SYRIN SUBCUT SCH ×2 (10:09→21:59)
[2017-03-22] MEDS: ASPIRIN 300 MG SUPP, RECTAL PR SCH (10:09)
--- NOTE | 2017-03-22 11:14 | RADIOLOGY REPORT (SQ) ---
EXAM DESCRIPTION: CHEST SINGLE VIEW COMPLETED DATE/TIME: 03/22/2017 10:22 am REASON FOR STUDY: dyspnea COMPARISON: 03/18/2017 EXAM PARAMETERS: NUMBER OF VIEWS: One view. TECHNIQUE: Single frontal radiographic view of the chest acquired. RADIATION DOSE: NA LIMITATIONS: None. FINDINGS: LUNGS AND PLEURA: No opacities, masses or pneumothorax. No pleural effusion. MEDIASTINUM AND HILAR STRUCTURES: No masses. Contour normal. HEART AND VASCULAR STRUCTURES: Cardiac silhouette remains enlarged and is unchanged in configuration. BONES: No acute findings. HARDWARE: AICD device is unchanged in position OTHER: No other significant finding. IMPRESSION: Cardiomegaly unchanged from the previous study. Other findings as noted above TECHNICAL DOCUMENTATION: JOB ID: [id number]
[2017-03-22 11:24] LABS: ABSOLUTE EOSINOPHILS # (AUTO) 0.1 10^3/uL (0.0-0.6); ABSOLUTE LYMPHOCYTES (AUTO) 0.7 10^3/uL (0.5-4.7); ABSOLUTE MONOCYTES (AUTO) 1.6 10^3/uL (0.1-1.4); ABSOLUTE NEUT (AUTO) 9.7 10^3/uL (1.7-8.2); BASOPHILS % (AUTO) 0.3 % (0-2); LYMPHOCYTES % (AUTO) 5.9 % (13-45); MEAN CORPUSCULAR HEMOGLOBIN 28.8 pg (27.0-33.4); MEAN CORPUSCULAR HGB CONC 33.2 g/dL (32.0-36.0); MEAN CORPUSCULAR VOLUME 87 fl (80-97); MONOCYTES % (AUTO) 13.4 % (3-13); RED CELL DISTRIBUTION WIDTH 16.8 % (11.5-14.0); SEGMENTED NEUTROPHILS % (AUTO) 79.4 % (42-78); WHITE BLOOD COUNT 12.2 10^3/uL (4.0-10.5)
--- NOTE | 2017-03-22 11:28 | PDOC PROGRESS REPORT ---
Subjective Progress Note for:: 03/22/17 Subjective:: reason for visit: f/u CVA, HTN, CAD hospital course: KEVAN LACKEY is a 81 year old male with multiple medical problems dominated by recent (06/2016) cardiac arrest due to LAD occlusion saved by emergent PTCA and stenting at [facility] but with complicated recovery due to new onset afib, unknown ventricular arrhythmia with PPM and AICD placement, ischemic cardiomyopathy with EF reportedly 30%, and GIB due to gastric erosions and Brillinta use post stent. He is normally very active now, engaged in swimming at the pool for exercise and to aid in weight loss and recovery from his AMI. He was last seen and heard from the evening before presentation by his live-in grandson, who would normally spend the night but did not due to personal reasons and who arrived the morning of 03/18 only to find his grandfather lying on the bathroom floor grunting and unable to move. His eyes were open but he didn't seem to respond, couldn't talk and EMS arrived to find him with Rt hemiparesis and hemineglect transporting him to the hospital. Here ct head shows no bleed but suspicion for Lf MCA distribution acute infarct involving multiple regions/lobes as likely explanation. He is well outside the window for tPa and not a candidate anyway due to ongoing Brillinta use and recent GIB. We were asked to admit the patient for further eval and management. He remains nonverbal so hx is obtained from review of the chart and his son. Thursday his condition seemed to have stabilized but not much in the way of improvement other than he is a bit more interactive with his environment but certainly not on command. His eyes were open and he tried to get out of the bed but limited by a persistent Rt hemiparesis. He is able to move his hand and foot which is new. Rt facial droop not as prominent as before. still nonverbal. he can track me around the room. 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 Thursday again no appreciable improvement that i can see. still no effort to follow commands, open his mouth or participate in his care for me movements are random, he remains nonverbal. he has some limited movement of his hand and foot. he clearly does better with his sons present and after discussion with his physician son who is willing to accept the repercussions, he has attempted bedside feedings with pudding and thin water. He choked on the water but I witnessed him taking the spoon in his left hand, placing it in his mouth and appropriately swallowing pudding consistency without overt signs of aspiration, no coughing, choking and he was able to clear his oropharynx with each swallow. Family met with [facility] on Thursday, they are considering palliative care and/or hospice if his condition fails to improve and do NOT want artificial feedings with NGT or PEG or TPN. We are using daily banana bag as a bridge for now. the family continues to agree to accept the risk of aspiration and its consequences and is requesting we advance his diet to pudding consistency with 1 :1 assist and aspiration precautions until such time as ST arrives on thursday for more formal evaluation and recommendations. he continues to work with PT/ OT. ROS: unobtainable due to mental state. Physical Exam Vital Signs: Temp Pulse Resp BP Pulse Ox 99.3 F 60 24 H 160/65 H 97 03/22/17 03:36 03/22/17 07:00 03/22/17 03:36 03/22/17 03:36 03/22/17 03:36 Intake & Output 03/21/17 03/22/17 03/23/17 06:59 06:59 06:59 Intake Total 480 1080 Output Total 1200 1625 Balance -720 -545 Weight 99.2 kg 99 kg General appearance: PRESENT: no acute distress, obese, well-developed, well- nourished, eyes are open, he seems to want to interact and he still struggles at time to track me to his Right without turning his head. Head exam: PRESENT: atraumatic, normocephalic Eye exam: PRESENT: PERRLA, other - rt eye ptosis less prominent. ABSENT: conjunctival injection, EOMI - will track past midline Mouth exam: PRESENT: dry mucosa. ABSENT: neck supple Neck exam: ABSENT: carotid bruit, lymphadenopathy, tracheal deviation Respiratory exam: PRESENT: clear to auscultation duyen., maybe a little coarse at the Rt base, no significant secretions ABSENT: accessory muscle use Cardiovascular exam: PRESENT: irregular rhythm, rate controlled. ABSENT: systolic murmur Pulses: PRESENT: normal carotid pulses, normal radial pulses Vascular exam: PRESENT: normal capillary refill GI/Abdominal exam: PRESENT: normal bowel sounds, soft. ABSENT: tenderness - no grimace Extremities exam: PRESENT: trace edema Neurological exam: PRESENT: altered, awake, aphasic - makes no effort to follow commands or respond, Rt hand and foot will withdraw with attempts at passive ROM, muscle tone no longer flaccid but still persistent Rt hemiparesis; reflexes severely diminished at patella bilat; no ankle clonus. he spontaneously moves his Rt foot and clenches his Rt hand. Focused psych exam: ABSENT: psychomotor agitation, restlessness Results Laboratory Results: 03/22/17 05:10 03/22/17 05:10 Sodium 143.5 Potassium 3.3 L Chloride 111 H Carbon Dioxide 20 L Anion Gap 13 BUN 19 Creatinine 1.07 Est GFR ( Amer) > 60 Est GFR (Non-Af Amer) > 60 Glucose 110 Calcium 8.9 03/19/17 06:00 Troponin I 0.039 Assessment & Plan - Diagnosis (1) Fever Qualifiers: Fever type: unspecified Qualified Code(s): R50.9 - Fever, unspecified Is this a current diagnosis for this admission?: YesPlan: starting to run low grade elevations of his temp; he's had a munoz since his arrival due to immobility and we did start a diet yesterday. will send UA, CBC , ck CXR and hold further feedings for now. (2) Acute ischemic left MCA stroke Is this a current diagnosis for this admission?: YesPlan: stable; echo shows no thrombus or severe valvular disease, CTA head and neck show tight stenosis of the origin of left internal carotid artery. started full dose anticoagulation due to <30% estimated brain loss on imaging; continue rectal ASA for now. lipids show his LDL is not well controlled for someone with recent LAD occlusion and stent, will add high dose statin when able. continue ST/PT/OT to see if we are going to be able to do more than comfort feedings and progress to intensive acute rehab which is what the family wants. prognosis is guarded; furthermore, we have to use rectal ASA to keep his stent open, not sure of its effectiveness so he is at risk for stent occlusion and sudden cardiac . (3) Tucker-neglect of right side Is this a current diagnosis for this admission?: YesPlan: improved, possibly resolved difficult to say until he participates more in general (4) HTN (hypertension) Is this a current diagnosis for this admission?: YesPlan: poorly controlled, increase scheduled low dose ACEi IV for now and ck renal function in am (5) ASCVD (arteriosclerotic cardiovascular disease) Is this a current diagnosis for this admission?: YesPlan: continue rectal ASA and will have to hold his oral meds until he is cleared by ST or alternate feeding route established. (6) Cardiomyopathy Qualifiers: Cardiomyopathy type: ischemic Qualified Code(s): I25.5 - Ischemic cardiomyopathy Is this a current diagnosis for this admission?: YesPlan: family report his EF at 30%, will try to get old records from [facility] to clarify. need to keep him on the dry side due to cardiomegaly and vascular congestion seen on admitting cxr (7) Afib Qualifiers: Atrial fibrillation type: chronic Qualified Code(s): I48.2 - Chronic atrial fibrillation Is this a current diagnosis for this admission?: YesPlan: rate control at present, continue prn lopressor until able to treat his BP or he is taking oral again. continue anticoagulation (8) Carotid artery stenosis with cerebral infarction less than 8 weeks ago Is this a current diagnosis for this admission?: YesPlan: continue antiplt and anticoagulation monitoring for bleeding complication; add statin when able. will need vascular surgery consult when his condition stabilizes and if it improves enough to tolerate surgery. - Time Time Spent with patient: 35 or more minutes - 25 minutes alone spent with his family at the bedside in consultation, additional time spent on PE and management. - Plan Summary Plan Summary: results of Thursday's therapy sessions will in large part determine what the family decides to do next.
[2017-03-22] MEDS: POTASSI CL 20 MEQ/D5NS 1L 1,000 ML IV PRN (11:40)
[2017-03-22] MEDS: NORMAL SALINE 1000 ML 1,000 ML with POTASSIUM CHLORIDE 20 MEQ, MAGNESIUM SULFATE 8 MEQ,... IV SCH ×5 (20:19)
[2017-03-23 01:12] LABS: APPEARANCE,URINE SLIGHTLY-CLOUDY; BILIRUBIN,URINE NEGATIVE (NEGATIVE); GLUCOSE, URINE NEGATIVE (NEGATIVE); KETONES,URINE NEGATIVE (NEGATIVE); LEUKOCYTE ESTERASE,URINE NEGATIVE (NEGATIVE); NITRITE,URINE NEGATIVE (NEGATIVE); PROTEIN,URINE 30 mg/dL (NEGATIVE); URINE SPECIFIC GRAVITY 1.018; UROBILINOGEN,URINE NEGATIVE mg/dL (<2.0)
[2017-03-23] MEDS: ENALAPRILAT DIHYDRATE INJ/PF 1.25 MG/1 ML SDV IV SCH (06:27)
[2017-03-23 07:36] LABS: HEMATOCRIT 41.9 % (37.9-51.0); HGB HCT DIFFERENCE 0.1; MEAN CORPUSCULAR HEMOGLOBIN 28.5 pg (27.0-33.4); MEAN CORPUSCULAR HGB CONC 33.4 g/dL (32.0-36.0); MEAN CORPUSCULAR VOLUME 85 fl (80-97); RED BLOOD COUNT 4.92 10^6/uL (4.35-5.55); RED CELL DISTRIBUTION WIDTH 16.9 % (11.5-14.0); WHITE BLOOD COUNT 12.1 10^3/uL (4.0-10.5)
[2017-03-23] MEDS ORDERED: PHARMACY COMMUNICATION ORDER MC NR (08:00)
[2017-03-23 08:29] LABS: ANION GAP 12 (5-19); BLOOD UREA NITROGEN 19 mg/dL (7-20); CALCIUM 8.9 mg/dL (8.4-10.2); CARBON DIOXIDE 21 mmol/L (22-30); CHLORIDE 111 mmol/L (98-107); CREATININE RESULT 1.04 mg/dL (0.52-1.25); GLUCOSE 102 mg/dL (75-110); POTASSIUM 3.6 mmol/L (3.6-5.0); SODIUM 144.1 mmol/L (137-145)
[2017-03-23] MEDS: ENOXAPARIN SODIUM INJ 100 MG/1 ML DISP.SYRIN SUBCUT SCH ×2 (10:04→21:25)
--- NOTE | 2017-03-23 11:02 | RADIOLOGY REPORT (SQ) ---
EXAM DESCRIPTION: CHEST SINGLE VIEW COMPLETED DATE/TIME: 03/23/2017 10:54 am REASON FOR STUDY: dyspnea, poss aspiration COMPARISON: 03/22/2017 EXAM PARAMETERS: NUMBER OF VIEWS: One view. TECHNIQUE: Single frontal radiographic view of the chest acquired. RADIATION DOSE: NA LIMITATIONS: None. FINDINGS: LUNGS AND PLEURA: No opacities, masses or pneumothorax. No pleural effusion. MEDIASTINUM AND HILAR STRUCTURES: No masses. Contour normal. HEART AND VASCULAR STRUCTURES: Cardiac silhouette is mildly enlarged. There is no evidence of failur e. BONES: No acute findings. HARDWARE: Stable left subclavian defibrillator. OTHER: No other significant finding. IMPRESSION: Mild cardiomegaly without evidence of acute cardiopulmonary disease. TECHNICAL DOCUMENTATION: JOB ID: [id number]
--- NOTE | 2017-03-23 13:31 | PDOC PROGRESS REPORT ---
Subjective Progress Note for:: 03/23/17 Subjective:: Patient care discussed with his three sons, Kalyan, Reese, and son who is a physician. They have all agreed that their father would be unhappy with his quality of life and with returning to a nursing facility in any capacity. They do express understanding and agree to ongoing feedings despite concerns that have been expressed for aspiration. They are planning to discuss turning off his defibrillator prior to discharge. At this time, they would like to discuss hospice amongst each other. Unable to obtain review of systems secondary to CVA. Physical Exam Vital Signs: Temp Pulse Resp BP Pulse Ox 98.7 F 87 20 156/78 H 96 03/23/17 03:51 03/23/17 03:51 03/23/17 03:51 03/23/17 03:51 03/23/17 03:51 Intake & Output 03/22/17 03/23/17 03/24/17 06:59 06:59 06:59 Intake Total 1080 1730 Output Total 1625 700 Balance -545 1030 Weight 99 kg 98.4 kg Exam: GENERAL: No acute distress, resting comfortably, rouses to noxious stimuli HEENT: Conjunctiva clear, nonicteric, moist mucous membranes, no JVD, midline trachea RESPIRATORY: Clear to auscultation bilaterally CARDIAC: IRR, +SM, no gallops/rubs ABDOMEN: Soft, NTTP, ND, active bowel sounds, no rebound, no rigidity, no guarding EXTREMETIES: No edema, no cyanosis, no clubbing NEUROLOGIC: resting comfortably, right hemiparesis, aphasia Results Laboratory Results: 03/23/17 06:24 03/22/17 05:10 03/22/17 03/22/17 03/23/17 05:10 05:10 00:13 WBC 12.2 H RBC 4.50 Hgb 13.0 L Hct 39.0 MCV 87 MCH 28.8 MCHC 33.2 RDW 16.8 H Plt Count 193 Seg Neutrophils % 79.4 H Lymphocytes % 5.9 L Monocytes % 13.4 H Eosinophils % 1.0 Basophils % 0.3 Absolute Neutrophils 9.7 H Absolute Lymphocytes 0.7 Absolute Monocytes 1.6 H Absolute Eosinophils 0.1 Absolute Basophils 0.0 Magnesium 2.5 H Urine Color YELLOW Urine Appearance SLIGHTLY-CLOUDY Urine pH 5.0 Ur Specific Damar 1.018 Urine Protein 30 H Urine Glucose (UA) NEGATIVE Urine Ketones NEGATIVE Urine Blood NEGATIVE Urine Nitrite NEGATIVE Ur Leukocyte Esterase NEGATIVE Urine WBC (Auto) 5 Urine RBC (Auto) 3 03/23/17 06:24 WBC 12.1 H RBC 4.92 Hgb 14.0 Hct 41.9 MCV 85 MCH 28.5 MCHC 33.4 RDW 16.9 H Plt Count 205 Seg Neutrophils % Lymphocytes % Monocytes % Eosinophils % Basophils % Absolute Neutrophils Absolute Lymphocytes Absolute Monocytes Absolute Eosinophils Absolute Basophils Magnesium Urine Color Urine Appearance Urine pH Ur Specific Damar Urine Protein Urine Glucose (UA) Urine Ketones Urine Blood Urine Nitrite Ur Leukocyte Esterase Urine WBC (Auto) Urine RBC (Auto) 03/19/17 06:00 Troponin I 0.039 Impressions: Head CT 03/18/17 14:31 IMPRESSION: Acute nonhemorrhagic left MCA distribution infarct involving the left insular cortex, external capsule and lateral basal ganglia Head CTA 03/19/17 00:00 IMPRESSION: NO CTA EVIDENCE OF STENOSIS OR ANEURYSM OF THE LAC VIEUX OF MORAL[place]. There is absent or diminished contrast opacification of the more distal portion of the left middle cerebral artery is noted above and there is decrease perfusion of the branches of the left middle cerebral artery. I am uncertain as to whether this is related to an occlusion or stenosis of the distal left middle cerebral artery. Other findings as noted above Neck CTA 03/19/17 00:00 IMPRESSION: There is bilateral calcific atherosclerotic plaquing at the level of the carotid bifurcations as noted above with a high-grade stenosis of the left internal carotid artery at its origin. Other findings as noted above Chest X-Ray 03/22/17 09:52 IMPRESSION: Cardiomegaly unchanged from the previous study. Other findings as noted above Assessment & Plan - Diagnosis (1) ASCVD (arteriosclerotic cardiovascular disease) Is this a current diagnosis for this admission?: YesPlan: Patient medications crushed in pudding. Generic Name Dose Route Start Last Admin Trade Name Freq PRN Reason Stop Dose Admin Atorvastatin Calcium 80 mg 03/24/17 10:00 Lipitor 80 Mg Tablet PO 04/23/17 09:59 DAILY ZUNILDA Carvedilol 12.5 mg 03/23/17 22:00 Coreg 12.5 Mg Tablet PO 04/22/17 21:59 Q12 ZUNILDA Sacubitril/Valsartan 1 tab 03/24/17 10:00 Entresto 49 Mg/51 Mg Tablet PO 04/23/17 09:59 DAILY [facility] Ticagrelor 90 mg 03/23/17 18:00 Brilinta 90 Mg Tablet PO 04/22/17 17:59 BID [facility] Aspirin 324 mg 03/24/17 10:00 Aspirin 81 Mg Chewable Tablet PO 04/23/17 09:59 DAILY [facility] (2) Acute ischemic left MCA stroke Is this a current diagnosis for this admission?: YesPlan: Patient has had 24 hours of permissive HTN. Will bring to acceptable range. Likely secondary to atherosclerotic disease of the MCA. Patient has had recent carotid and cannot rule out cholesterol emboli. Generic Name Dose Route Start Last Admin Trade Name Freq PRN Reason Stop Dose Admin Atorvastatin Calcium 80 mg 03/24/17 10:00 Lipitor 80 Mg Tablet PO 04/23/17 09:59 DAILY [facility] Aspirin 324 mg 03/24/17 10:00 Aspirin 81 Mg Chewable Tablet PO 04/23/17 09:59 DAILY [facility] Carvedilol 12.5 mg 03/23/17 22:00 Coreg 12.5 Mg Tablet PO 04/22/17 21:59 Q12 [facility] Sacubitril/Valsartan 1 tab 03/24/17 10:00 Entresto 49 Mg/51 Mg Tablet PO 04/23/17 09:59 DAILY [facility] (3) Afib Qualifiers: Atrial fibrillation type: chronic Qualified Code(s): I48.2 - Chronic atrial fibrillation Is this a current diagnosis for this admission?: YesPlan: Patient rate controlled on coreg. Continue this and brillinta. Patient is also on full dose lovenox. Will discuss utility of transition to warfarin in light of recent stent and family desire for hospice care. (4) Cardiomyopathy Qualifiers: Cardiomyopathy type: ischemic Qualified Code(s): I25.5 - Ischemic cardiomyopathy Is this a current diagnosis for this admission?: Yes (5) Carotid artery stenosis with cerebral infarction less than 8 weeks ago Is this a current diagnosis for this admission?: Yes (6) Fever Qualifiers: Fever type: unspecified Qualified Code(s): R50.9 - Fever, unspecified Is this a current diagnosis for this admission?: YesPlan: Concern at this time for UTI and for aspiration pneumonia. Repeat CXR negative for acute findings. Consider initiation of Rocephin for possible urinary pathogens awaiting culture. (7) HTN (hypertension) Is this a current diagnosis for this admission?: YesPlan: Resume prior medications and continue prn metoprolol. Goal BP less than 140/90. (8) Tucker-neglect of right side Is this a current diagnosis for this admission?: YesPlan: Secondary to acute CVA (9) Obesity with serious comorbidity Qualifiers: Obesity type: due to excess calories Obesity classification: adult class 1 (BMI 30 ? 34.9) Body mass index: BMI 30.0-30.9 Qualified Code (s): E66.09 - Other obesity due to excess calories; Z68.30 - Body mass index ( BMI) 30.0-30.9, adult Is this a current diagnosis for this admission?: Yes - Time Time Spent with patient: 35 or more minutes Medications reviewed and adjusted accordingly: Yes Anticipated discharge: Acute Rehab, Hospice Within: within 72 hours - Inpatient Certification Based on my medical assessment, after consideration of the patient's comorbidities, presenting symptoms, or acuity I expect that the services needed warrant INPATIENT care.: Yes Medical Necessity: Need For IV Fluids, Need For Continuous Telemetry Monitoring , Need for IV Antibiotics Post Hospital Care: D/C Advertisement Compositor Documentation
[2017-03-23] MEDS: LANSOPRAZOLE 15 MG TAB.RAP.DR PO SCH (18:20)
[2017-03-23] MEDS: MONTELUKAST SODIUM 10 MG TABLET PO SCH (18:20)
[2017-03-23] MEDS: TICAGRELOR 90 MG TABLET PO SCH (18:20)
[2017-03-23] MEDS: CARVEDILOL 12.5 MG TABLET PO SCH (21:25)
[2017-03-24] MEDS: POTASSI CL 20 MEQ/D5NS 1L 1,000 ML IV PRN (06:06)
[2017-03-24] MEDS: ENOXAPARIN SODIUM INJ 100 MG/1 ML DISP.SYRIN SUBCUT SCH (10:07)
[2017-03-24] MEDS: ASPIRIN 81 MG TABLET, CHEWABLE PO SCH (10:08)
[2017-03-24] MEDS: ATORVASTATIN CALCIUM 80 MG TABLET PO SCH (10:09)
[2017-03-24] MEDS: LANSOPRAZOLE 15 MG TAB.RAP.DR PO SCH ×2 (10:10→17:14)
[2017-03-24] MEDS: TICAGRELOR 90 MG TABLET PO SCH ×2 (10:10→17:14)
[2017-03-24] MEDS: SACUBITRIL/VALSARTAN 49 MG/51 MG TABLET PO SCH (10:11)
[2017-03-24] MEDS: CARVEDILOL 12.5 MG TABLET PO SCH ×2 (10:12→22:01)
[2017-03-24] MEDS: TAMSULOSIN HCL 0.4 MG CAP.SR.24H PO SCH (10:14)
[2017-03-24] MEDS: CEFTRIAXONE 1 GM/D5W RTU 1 GM/50 ML RTUPB IV SCH (14:13)
--- NOTE | 2017-03-24 15:47 | PDOC PROGRESS REPORT ---
Subjective Progress Note for:: 03/24/17 Subjective:: Met again with sons Kalyan and Reese. Patient lethargic but rouses to painful stimuli. Family reports he ate well for them. Unable to obtain ROS secondary to obtundation from CVA. Physical Exam Vital Signs: Temp Pulse Resp BP Pulse Ox 98.8 F 64 19 118/55 L 93 03/24/17 11:42 03/24/17 14:00 03/24/17 11:42 03/24/17 11:42 03/24/17 11:42 Intake & Output 03/23/17 03/24/17 03/25/17 06:59 06:59 06:59 Intake Total 1730 2110 25 Output Total 700 Balance 1030 2110 25 Weight 98.4 kg 99.4 kg Exam: GENERAL: No acute distress, resting comfortably, rouses to noxious stimuli HEENT: Conjunctiva clear, nonicteric, moist mucous membranes, no JVD, midline trachea RESPIRATORY: Clear to auscultation bilaterally CARDIAC: IRR, +SM, no gallops/rubs ABDOMEN: Soft, NTTP, ND, active bowel sounds, no rebound, no rigidity, no guarding EXTREMETIES: No edema, no cyanosis, no clubbing NEUROLOGIC: resting comfortably, right hemiparesis, aphasia Results Laboratory Results: 03/23/17 06:24 03/23/17 06:24 03/19/17 06:00 Troponin I 0.039 Impressions: Head CT 03/18/17 14:31 IMPRESSION: Acute nonhemorrhagic left MCA distribution infarct involving the left insular cortex, external capsule and lateral basal ganglia Head CTA 03/19/17 00:00 IMPRESSION: NO CTA EVIDENCE OF STENOSIS OR ANEURYSM OF THE [place]. There is absent or diminished contrast opacification of the more distal portion of the left middle cerebral artery is noted above and there is decrease perfusion of the branches of the left middle cerebral artery. I am uncertain as to whether this is related to an occlusion or stenosis of the distal left middle cerebral artery. Other findings as noted above Neck CTA 03/19/17 00:00 IMPRESSION: There is bilateral calcific atherosclerotic plaquing at the level of the carotid bifurcations as noted above with a high-grade stenosis of the left internal carotid artery at its origin. Other findings as noted above Chest X-Ray 03/23/17 07:00 IMPRESSION: Mild cardiomegaly without evidence of acute cardiopulmonary disease. Assessment & Plan - Diagnosis (1) ASCVD (arteriosclerotic cardiovascular disease) Is this a current diagnosis for this admission?: Yes (2) Acute ischemic left MCA stroke Is this a current diagnosis for this admission?: Yes (3) Afib Qualifiers: Atrial fibrillation type: chronic Qualified Code(s): I48.2 - Chronic atrial fibrillation Is this a current diagnosis for this admission?: Yes (4) Cardiomyopathy Qualifiers: Cardiomyopathy type: ischemic Qualified Code(s): I25.5 - Ischemic cardiomyopathy Is this a current diagnosis for this admission?: Yes (5) Carotid artery stenosis with cerebral infarction less than 8 weeks ago Is this a current diagnosis for this admission?: Yes (6) Fever Qualifiers: Fever type: unspecified Qualified Code(s): R50.9 - Fever, unspecified Is this a current diagnosis for this admission?: YesPlan: Patient has one positive blood culture. Placed on Rocephin. (7) HTN (hypertension) Is this a current diagnosis for this admission?: Yes (8) Tucker-neglect of right side Is this a current diagnosis for this admission?: Yes (9) Obesity with serious comorbidity Qualifiers: Obesity type: due to excess calories Obesity classification: adult class 1 (BMI 30 ? 34.9) Body mass index: BMI 30.0-30.9 Qualified Code (s): E66.09 - Other obesity due to excess calories; Z68.30 - Body mass index ( BMI) 30.0-30.9, adult Is this a current diagnosis for this admission?: Yes (10) DNR (do not resuscitate) Is this a current diagnosis for this admission?: Yes - Time Time Spent with patient: 25-34 minutes Anticipated discharge: Home, Hospice Within: within 48 hours - Plan Summary Plan Summary: At this time family is making arrangements to take this patient home on hospice due to his current condition and overall poor health in accordance with what they feel would be their father's wishes. Am in agreement with this plan. Continue to treat underlying possible uti until this is in place. Discharge planning is working with them on this.
[2017-03-24] MEDS: MONTELUKAST SODIUM 10 MG TABLET PO SCH (17:14)
[2017-03-24] MEDS: NORMAL SALINE 1000 ML 1,000 ML with POTASSIUM CHLORIDE 20 MEQ, MAGNESIUM SULFATE 8 MEQ,... IV SCH ×5 (17:14)
[2017-03-25 07:49] LABS: HEMATOCRIT 35.8 % (37.9-51.0); HGB HCT DIFFERENCE 0.2; MEAN CORPUSCULAR HEMOGLOBIN 28.5 pg (27.0-33.4); MEAN CORPUSCULAR HGB CONC 33.5 g/dL (32.0-36.0); MEAN CORPUSCULAR VOLUME 85 fl (80-97); RED BLOOD COUNT 4.21 10^6/uL (4.35-5.55); RED CELL DISTRIBUTION WIDTH 16.3 % (11.5-14.0); WHITE BLOOD COUNT 8.1 10^3/uL (4.0-10.5)
[2017-03-25 07:55] LABS: ANION GAP 9 (5-19); BLOOD UREA NITROGEN 19 mg/dL (7-20); CALCIUM 8.8 mg/dL (8.4-10.2); CARBON DIOXIDE 23 mmol/L (22-30); CHLORIDE 113 mmol/L (98-107); CREATININE RESULT 0.96 mg/dL (0.52-1.25); GLUCOSE 111 mg/dL (75-110); MAGNESIUM 2.3 mg/dL (1.6-2.3); PHOSPHORUS 3.5 mg/dL (2.5-4.5); POTASSIUM 3.6 mmol/L (3.6-5.0); SODIUM 145.3 mmol/L (137-145)
[2017-03-25] MEDS: TAMSULOSIN HCL 0.4 MG CAP.SR.24H PO SCH (11:41)
[2017-03-25] MEDS: LANSOPRAZOLE 15 MG TAB.RAP.DR PO SCH ×2 (11:51→18:10)
[2017-03-25] MEDS: ATORVASTATIN CALCIUM 80 MG TABLET PO SCH (11:51)
[2017-03-25] MEDS: TICAGRELOR 90 MG TABLET PO SCH ×2 (11:51→18:11)
[2017-03-25] MEDS: ASPIRIN 81 MG TABLET, CHEWABLE PO SCH (11:52)
[2017-03-25] MEDS: CARVEDILOL 12.5 MG TABLET PO SCH ×2 (11:52→22:20)
[2017-03-25] MEDS: SACUBITRIL/VALSARTAN 49 MG/51 MG TABLET PO SCH (11:52)
[2017-03-25] MEDS: POTASSI CL 20 MEQ/D5NS 1L 1,000 ML IV PRN (12:02)
[2017-03-25] MEDS: CEFTRIAXONE 1 GM/D5W RTU 1 GM/50 ML RTUPB IV SCH (13:45)
[2017-03-25] MEDS: POTASSIUM CHLORIDE 20 MEQ/15 ML UDCUP PO SCH (14:16)
[2017-03-25] MEDS: MONTELUKAST SODIUM 10 MG TABLET PO SCH (18:10)
--- NOTE | 2017-03-26 09:14 | PDOC PROGRESS REPORT ---
Subjective Progress Note for:: 03/25/17 Subjective:: Patient is more awake today. Doing well. Patient is having significant expressive apashia. Working with PT. Unable to obtain review of systems 2/2 expressive aphasia. Physical Exam Vital Signs: Temp Pulse Resp BP Pulse Ox 98.5 F 64 18 144/63 H 95 03/25/17 11:33 03/25/17 11:33 03/25/17 11:33 03/25/17 11:33 03/25/17 11:33 Intake & Output 03/24/17 03/25/17 03/26/17 06:59 06:59 06:59 Intake Total 2109 2084 120 Balance 2109 2084 120 Weight 99.4 kg 100.6 kg Exam: GENERAL: No acute distress, awake and alert HEENT: Conjunctiva clear, nonicteric, moist mucous membranes, no JVD, midline trachea RESPIRATORY: Clear to auscultation bilaterally CARDIAC: IRR, +SM, no gallops/rubs ABDOMEN: Soft, NTTP, ND, active bowel sounds, no rebound, no rigidity, no guarding EXTREMETIES: No edema, no cyanosis, no clubbing NEUROLOGIC: resting comfortably, right hemiparesis, aphasia Results Laboratory Results: 03/25/17 06:11 03/25/17 06:11 03/25/17 03/25/17 06:11 06:11 WBC 8.1 RBC 4.21 L Hgb 12.0 L Hct 35.8 L MCV 85 MCH 28.5 MCHC 33.5 RDW 16.3 H Plt Count 236 Sodium 145.3 H Potassium 3.6 Chloride 113 H Carbon Dioxide 23 Anion Gap 9 BUN 19 Creatinine 0.96 Est GFR ( Amer) > 60 Est GFR (Non-Af Amer) > 60 Glucose 111 H Calcium 8.8 Phosphorus 3.5 Magnesium 2.3 03/19/17 06:00 Troponin I 0.039 Impressions: Head CT 03/18/17 14:31 IMPRESSION: Acute nonhemorrhagic left MCA distribution infarct involving the left insular cortex, external capsule and lateral basal ganglia Head CTA 03/19/17 00:00 IMPRESSION: NO CTA EVIDENCE OF STENOSIS OR ANEURYSM OF THE [place]. There is absent or diminished contrast opacification of the more distal portion of the left middle cerebral artery is noted above and there is decrease perfusion of the branches of the left middle cerebral artery. I am uncertain as to whether this is related to an occlusion or stenosis of the distal left middle cerebral artery. Other findings as noted above Neck CTA 03/19/17 00:00 IMPRESSION: There is bilateral calcific atherosclerotic plaquing at the level of the carotid bifurcations as noted above with a high-grade stenosis of the left internal carotid artery at its origin. Other findings as noted above Chest X-Ray 03/23/17 07:00 IMPRESSION: Mild cardiomegaly without evidence of acute cardiopulmonary disease. Assessment & Plan - Diagnosis (1) ASCVD (arteriosclerotic cardiovascular disease) Is this a current diagnosis for this admission?: Yes Plan: Patient medications crushed in pudding. Generic Name Dose Route Start Last Admin Trade Name Freq PRN Reason Stop Dose Admin Atorvastatin Calcium 80 mg 03/24/17 10:00 Lipitor 80 Mg Tablet PO 04/23/17 09:59 DAILY ZUNILDA Carvedilol 12.5 mg 03/23/17 22:00 Coreg 12.5 Mg Tablet PO 04/22/17 21:59 Q12 ZUNLIDA Sacubitril/Valsartan 1 tab 03/24/17 10:00 Entresto 49 Mg/51 Mg Tablet PO 04/23/17 09:59 DAILY ZUNILDA Ticagrelor 90 mg 03/23/17 18:00 Brilinta 90 Mg Tablet PO 04/22/17 17:59 BID ZUNILDA Aspirin 324 mg 03/24/17 10:00 Aspirin 81 Mg Chewable Tablet PO 04/23/17 09:59 DAILY ZUNILDA (2) Acute ischemic left MCA stroke Is this a current diagnosis for this admission?: Yes Plan: Patient has had 24 hours of permissive HTN. Will bring to acceptable range. Likely secondary to atherosclerotic disease of the MCA. Patient has had recent carotid and cannot rule out cholesterol emboli. Generic Name Dose Route Start Last Admin Trade Name Freq PRN Reason Stop Dose Admin Atorvastatin Calcium 80 mg 03/24/17 10:00 Lipitor 80 Mg Tablet PO 04/23/17 09:59 DAILY ZUNILDA Aspirin 324 mg 03/24/17 10:00 Aspirin 81 Mg Chewable Tablet PO 04/23/17 09:59 DAILY ZUNILDA Carvedilol 12.5 mg 03/23/17 22:00 Coreg 12.5 Mg Tablet PO 04/22/17 21:59 Q12 ZUNILDA Sacubitril/Valsartan 1 tab 03/24/17 10:00 Entresto 49 Mg/51 Mg Tablet PO 04/23/17 09:59 DAILY ZUNILDA (3) Afib Qualifiers: Atrial fibrillation type: chronic Qualified Code(s): I48.2 - Chronic atrial fibrillation Is this a current diagnosis for this admission?: Yes (4) Cardiomyopathy Qualifiers: Cardiomyopathy type: ischemic Qualified Code(s): I25.5 - Ischemic cardiomyopathy Is this a current diagnosis for this admission?: Yes (5) Carotid artery stenosis with cerebral infarction less than 8 weeks ago Is this a current diagnosis for this admission?: Yes (6) Fever Qualifiers: Fever type: unspecified Qualified Code(s): R50.9 - Fever, unspecified Is this a current diagnosis for this admission?: Yes (7) HTN (hypertension) Is this a current diagnosis for this admission?: Yes (8) Tucker-neglect of right side Is this a current diagnosis for this admission?: Yes (9) Obesity with serious comorbidity Qualifiers: Obesity type: due to excess calories Obesity classification: adult class 1 (BMI 30 ? 34.9) Body mass index: BMI 30.0-30.9 Qualified Code(s): E66.09 - Other obesity due to excess calories Is this a current diagnosis for this admission?: Yes (10) DNR (do not resuscitate) Is this a current diagnosis for this admission?: Yes (11) Chronic systolic (congestive) heart failure Is this a current diagnosis for this admission?: Yes - Time Time Spent with patient: 25-34 minutes - Plan Summary Plan Summary: pending dc plans for discharge. stable for dc home
[2017-03-26] MEDS: TAMSULOSIN HCL 0.4 MG CAP.SR.24H PO SCH (09:53)
[2017-03-26] MEDS: LANSOPRAZOLE 15 MG TAB.RAP.DR PO SCH ×2 (09:53→18:20)
[2017-03-26] MEDS: CARVEDILOL 12.5 MG TABLET PO SCH ×2 (09:53→23:56)
[2017-03-26] MEDS: SACUBITRIL/VALSARTAN 49 MG/51 MG TABLET PO SCH (09:53)
[2017-03-26] MEDS: TICAGRELOR 90 MG TABLET PO SCH ×2 (09:53→18:20)
[2017-03-26] MEDS: ATORVASTATIN CALCIUM 80 MG TABLET PO SCH (09:53)
[2017-03-26] MEDS: ASPIRIN 81 MG TABLET, CHEWABLE PO SCH (09:53)
[2017-03-26 11:20] LABS: ANION GAP 12 (5-19); BLOOD UREA NITROGEN 19 mg/dL (7-20); CALCIUM 8.9 mg/dL (8.4-10.2); CARBON DIOXIDE 22 mmol/L (22-30); CHLORIDE 109 mmol/L (98-107); CREATININE RESULT 1.06 mg/dL (0.52-1.25); GLUCOSE 216 mg/dL (75-110); POTASSIUM 3.1 mmol/L (3.6-5.0); SODIUM 142.5 mmol/L (137-145)
--- NOTE | 2017-03-26 14:07 | PDOC PROGRESS REPORT ---
Subjective Progress Note for:: 03/26/17 Subjective:: Patient is more awake today. Doing well. Patient is having significant expressive apashia. Working with PT and shows me he is working on moving his right arm. He is trying to express with yes/no. Unable to obtain review of systems 2/2 expressive aphasia. Physical Exam Vital Signs: Temp Pulse Resp BP Pulse Ox 98.8 F 61 19 148/67 H 96 03/26/17 07:38 03/26/17 07:38 03/26/17 07:38 03/26/17 07:38 03/26/17 07:38 Intake & Output 03/25/17 03/26/17 03/27/17 06:59 06:59 06:59 Intake Total 2085 695 Balance 5 695 Weight 100.6 kg 100.5 kg Exam: GENERAL: No acute distress, awake and alert HEENT: Conjunctiva clear, nonicteric, moist mucous membranes, no JVD, midline trachea RESPIRATORY: Clear to auscultation bilaterally CARDIAC: IRR, +SM, no gallops/rubs ABDOMEN: Soft, NTTP, ND, active bowel sounds, no rebound, no rigidity, no guarding EXTREMETIES: No edema, no cyanosis, no clubbing NEUROLOGIC: awake, alert, oriented to self, expressive aphasia, Strength 4+/5 RLE 3/5 RUE, 5/5 LLE, 5/5 LUE Psych: Normal mood and affect Results Laboratory Results: 03/25/17 06:11 03/25/17 06:11 03/25/17 03/25/17 06:11 06:11 WBC 8.1 RBC 4.21 L Hgb 12.0 L Hct 35.8 L MCV 85 MCH 28.5 MCHC 33.5 RDW 16.3 H Plt Count 236 Sodium 145.3 H Potassium 3.6 Chloride 113 H Carbon Dioxide 23 Anion Gap 9 BUN 19 Creatinine 0.96 Est GFR ( Amer) > 60 Est GFR (Non-Af Amer) > 60 Glucose 111 H Calcium 8.8 Phosphorus 3.5 Magnesium 2.3 03/19/17 06:00 Troponin I 0.039 Impressions: Head CT 03/18/17 14:31 IMPRESSION: Acute nonhemorrhagic left MCA distribution infarct involving the left insular cortex, external capsule and lateral basal ganglia Head CTA 03/19/17 00:00 IMPRESSION: NO CTA EVIDENCE OF STENOSIS OR ANEURYSM OF THE [place]. There is absent or diminished contrast opacification of the more distal portion of the left middle cerebral artery is noted above and there is decrease perfusion of the branches of the left middle cerebral artery. I am uncertain as to whether this is related to an occlusion or stenosis of the distal left middle cerebral artery. Other findings as noted above Neck CTA 03/19/17 00:00 IMPRESSION: There is bilateral calcific atherosclerotic plaquing at the level of the carotid bifurcations as noted above with a high-grade stenosis of the left internal carotid artery at its origin. Other findings as noted above Chest X-Ray 03/23/17 07:00 IMPRESSION: Mild cardiomegaly without evidence of acute cardiopulmonary disease. Assessment & Plan - Diagnosis (1) ASCVD (arteriosclerotic cardiovascular disease) Is this a current diagnosis for this admission?: Yes Plan: Patient medications crushed in pudding. Generic Name Dose Route Start Last Admin Trade Name Freq PRN Reason Stop Dose Admin Atorvastatin Calcium 80 mg 03/24/17 10:00 03/26/17 09:53 Lipitor 80 Mg Tablet PO 04/23/17 09:59 80 mg DAILY [facility] Carvedilol 25 mg 03/24/17 22:00 03/26/17 09:53 Coreg 12.5 Mg Tablet PO 04/23/17 21:59 25 mg Q12 [facility] Sacubitril/Valsartan 1 tab 03/24/17 10:00 03/26/17 09:53 Entresto 49 Mg/51 Mg Tablet PO 04/23/17 09:59 1 tab DAILY [facility] Ticagrelor 90 mg 03/23/17 18:00 03/26/17 09:53 Brilinta 90 Mg Tablet PO 04/22/17 17:59 90 mg BID [facility] (2) Acute ischemic left MCA stroke Is this a current diagnosis for this admission?: Yes Plan: Patient has had 24 hours of permissive HTN. BP improved. Likely secondary to atherosclerotic disease of the MCA. Patient has had recent carotid and cannot rule out cholesterol emboli. (3) Afib Qualifiers: Atrial fibrillation type: chronic Qualified Code(s): I48.2 - Chronic atrial fibrillation Is this a current diagnosis for this admission?: Yes Plan: Patient rate controlled on coreg. Continue this and brillinta. (4) Cardiomyopathy Qualifiers: Cardiomyopathy type: ischemic Qualified Code(s): I25.5 - Ischemic cardiomyopathy Is this a current diagnosis for this admission?: Yes (5) Carotid artery stenosis with cerebral infarction less than 8 weeks ago Is this a current diagnosis for this admission?: Yes Plan: Will need outpatient vascular consultation. Will arrange for follow up with vascular surgery. Benefit of CEA in patients with moderate to severe CVA and timing of CEA has not been studied. Patients were not eligible for NASCET or ECST trials. Usually preformed; however, within 6 weeks of CVA. (6) Fever Qualifiers: Fever type: unspecified Qualified Code(s): R50.9 - Fever, unspecified Is this a current diagnosis for this admission?: Yes Plan: Patient has improved greatly on Rocephin. Blood culture still pending. Suspect urinary pathogen. No further fevers. Continue Rocephin for a total of 5 days as there are no cultures for guidance (7) HTN (hypertension) Is this a current diagnosis for this admission?: Yes Plan: Good control. Goal BP less than 140/90. (8) Obesity with serious comorbidity Qualifiers: Obesity type: due to excess calories Obesity classification: adult class 1 (BMI 30 ? 34.9) Body mass index: BMI 30.0-30.9 Qualified Code(s): E66.09 - Other obesity due to excess calories Is this a current diagnosis for this admission?: Yes (9) Chronic systolic (congestive) heart failure Is this a current diagnosis for this admission?: Yes Plan: EF of 30% Euvolemic Generic Name Dose Route Start Last Admin Trade Name Freq PRN Reason Stop Dose Admin Sacubitril/Valsartan 1 tab 03/24/17 10:00 03/26/17 09:53 Entresto 49 Mg/51 Mg Tablet PO 04/23/17 09:59 1 tab DAILY ZUNILDA Carvedilol 25 mg 03/24/17 22:00 03/26/17 09:53 Coreg 12.5 Mg Tablet PO 04/23/17 21:59 25 mg Q12 ZUNILDA Atorvastatin Calcium 80 mg 03/24/17 10:00 03/26/17 09:53 Lipitor 80 Mg Tablet PO 04/23/17 09:59 80 mg DAILY ZUNILDA Aspirin 324 mg 03/24/17 10:00 03/26/17 09:53 Aspirin 81 Mg Chewable Tablet PO 04/23/17 09:59 324 mg DAILY [facility] Ticagrelor 90 mg 03/23/17 18:00 03/26/17 09:53 Brilinta 90 Mg Tablet PO 04/22/17 17:59 90 mg BID [facility] (10) DNR (do not resuscitate) Is this a current diagnosis for this admission?: Yes - Time Time Spent with patient: 25-34 minutes Medications reviewed and adjusted accordingly: Yes Within: within 72 hours - Inpatient Certification Based on my medical assessment, after consideration of the patient's comorbidities, presenting symptoms, or acuity I expect that the services needed warrant INPATIENT care.: Yes I certify that my determination is in accordance with my understanding of Medicare's requirements for reasonable and necessary INPATIENT services [42 CFR 412.3e].: Yes Medical Necessity: Need for IV Antibiotics Post Hospital Care: D/C Admitting Supervisor Documentation
[2017-03-26] MEDS: CEFTRIAXONE 1 GM/D5W RTU 1 GM/50 ML RTUPB IV SCH (14:55)
[2017-03-26] MEDS: POTASSIUM CHLORIDE 20 MEQ/15 ML UDCUP PO SCH (14:55)
[2017-03-26] MEDS ORDERED: ONDANSETRON HCL INJ/PF 4 MG/2 ML SDV IV PRN (15:00)
[2017-03-26] MEDS: MONTELUKAST SODIUM 10 MG TABLET PO SCH (18:20)
[2017-03-26] MEDS ORDERED: POTASSIUM CHLORIDE 10 MEQ TABLET.SA PO SCH (22:00)
[2017-03-27 06:12] LABS: HEMATOCRIT 39.1 % (37.9-51.0); HEMOGLOBIN 13.1 g/dL (13.5-17.0); HGB HCT DIFFERENCE 0.2; MEAN CORPUSCULAR HEMOGLOBIN 28.7 pg (27.0-33.4); MEAN CORPUSCULAR HGB CONC 33.5 g/dL (32.0-36.0); MEAN CORPUSCULAR VOLUME 86 fl (80-97); RED BLOOD COUNT 4.57 10^6/uL (4.35-5.55); RED CELL DISTRIBUTION WIDTH 16.5 % (11.5-14.0); WHITE BLOOD COUNT 9.3 10^3/uL (4.0-10.5)
[2017-03-27 06:29] LABS: ANION GAP 9 (5-19); BLOOD UREA NITROGEN 21 mg/dL (7-20); CALCIUM 9.2 mg/dL (8.4-10.2); CARBON DIOXIDE 25 mmol/L (22-30); CHLORIDE 109 mmol/L (98-107); CREATININE RESULT 1.07 mg/dL (0.52-1.25); GLUCOSE 101 mg/dL (75-110); MAGNESIUM 2.1 mg/dL (1.6-2.3); POTASSIUM 3.6 mmol/L (3.6-5.0); SODIUM 143.3 mmol/L (137-145)
[2017-03-27] MEDS ORDERED: POTASSIUM CHLORIDE 20 MEQ/15 ML UDCUP PO ONE (10:30)
[2017-03-27] MEDS: TAMSULOSIN HCL 0.4 MG CAP.SR.24H PO SCH (10:59)
[2017-03-27] MEDS: TICAGRELOR 90 MG TABLET PO SCH ×2 (10:59→17:24)
[2017-03-27] MEDS: LANSOPRAZOLE 15 MG TAB.RAP.DR PO SCH ×2 (10:59→17:24)
[2017-03-27] MEDS: SACUBITRIL/VALSARTAN 49 MG/51 MG TABLET PO SCH (10:59)
[2017-03-27] MEDS: ATORVASTATIN CALCIUM 80 MG TABLET PO SCH (10:59)
[2017-03-27] MEDS: CARVEDILOL 12.5 MG TABLET PO SCH ×2 (10:59→22:04)
[2017-03-27] MEDS: ASPIRIN 325 MG TABLET PO SCH (10:59)
[2017-03-27] MEDS: CEFTRIAXONE 1 GM/D5W RTU 1 GM/50 ML RTUPB IV SCH (14:11)
--- NOTE | 2017-03-27 15:15 | PDOC PROGRESS REPORT ---
Subjective Progress Note for:: 03/27/17 Subjective:: Patient is more awake today. Doing well. Patient is having significant expressive aphasia.. Unable to obtain review of systems 2/2 expressive aphasia. Physical Exam Vital Signs: Temp Pulse Resp BP Pulse Ox 98.8 F 61 19 147/64 H 93 03/27/17 04:18 03/27/17 04:18 03/27/17 04:18 03/27/17 04:18 03/27/17 04:18 Intake & Output 03/26/17 03/27/17 03/28/17 06:59 06:59 06:59 Intake Total 695 470 Balance 695 470 Weight 100.5 kg Exam: GENERAL: No acute distress, awake and alert HEENT: Conjunctiva clear, nonicteric, moist mucous membranes, no JVD, midline trachea RESPIRATORY: Clear to auscultation bilaterally CARDIAC: IRR, +SM, no gallops/rubs ABDOMEN: Soft, NTTP, ND, active bowel sounds, no rebound, no rigidity, no guarding EXTREMETIES: No edema, no cyanosis, no clubbing NEUROLOGIC: awake, alert, oriented to self, expressive aphasia, Strength 4+/5 RLE 3/5 RUE, 5/5 LLE, 5/5 LUE Psych: Normal mood and affect Results Laboratory Results: 03/27/17 05:00 03/27/17 05:00 03/26/17 03/26/17 03/27/17 10:09 10:09 05:00 WBC 9.3 RBC 4.57 Hgb 13.1 L Hct 39.1 MCV 86 MCH 28.7 MCHC 33.5 RDW 16.5 H Plt Count 298 Sodium 142.5 Potassium 3.1 L Chloride 109 H Carbon Dioxide 22 Anion Gap 12 BUN 19 Creatinine 1.06 Est GFR ( Amer) > 60 Est GFR (Non-Af Amer) > 60 Glucose 216 H Calcium 8.9 Magnesium 2.1 03/27/17 05:00 WBC RBC Hgb Hct MCV MCH MCHC RDW Plt Count Sodium 143.3 Potassium 3.6 Chloride 109 H Carbon Dioxide 25 Anion Gap 9 BUN 21 H Creatinine 1.07 Est GFR ( Amer) > 60 Est GFR (Non-Af Amer) > 60 Glucose 101 Calcium 9.2 Magnesium 2.1 03/19/17 06:00 Troponin I 0.039 Impressions: Head CT 03/18/17 14:31 IMPRESSION: Acute nonhemorrhagic left MCA distribution infarct involving the left insular cortex, external capsule and lateral basal ganglia Head CTA 03/19/17 00:00 IMPRESSION: NO CTA EVIDENCE OF STENOSIS OR ANEURYSM OF THE [place]. There is absent or diminished contrast opacification of the more distal portion of the left middle cerebral artery is noted above and there is decrease perfusion of the branches of the left middle cerebral artery. I am uncertain as to whether this is related to an occlusion or stenosis of the distal left middle cerebral artery. Other findings as noted above Neck CTA 03/19/17 00:00 IMPRESSION: There is bilateral calcific atherosclerotic plaquing at the level of the carotid bifurcations as noted above with a high-grade stenosis of the left internal carotid artery at its origin. Other findings as noted above Chest X-Ray 03/23/17 07:00 IMPRESSION: Mild cardiomegaly without evidence of acute cardiopulmonary disease. Assessment & Plan - Diagnosis (1) ASCVD (arteriosclerotic cardiovascular disease) Is this a current diagnosis for this admission?: Yes Plan: Patient with recent stent and defib placement. Patient medications crushed in pudding. Generic Name Dose Route Start Last Admin Trade Name Freq PRN Reason Stop Dose Admin Atorvastatin Calcium 80 mg 03/24/17 10:00 03/26/17 09:53 Lipitor 80 Mg Tablet PO 04/23/17 09:59 80 mg DAILY ZUNILDA Carvedilol 25 mg 03/24/17 22:00 03/26/17 09:53 Coreg 12.5 Mg Tablet PO 04/23/17 21:59 25 mg Q12 ZUNILDA Sacubitril/Valsartan 1 tab 03/24/17 10:00 03/26/17 09:53 Entresto 49 Mg/51 Mg Tablet PO 04/23/17 09:59 1 tab DAILY ZUNILDA Ticagrelor 90 mg 03/23/17 18:00 03/26/17 09:53 Brilinta 90 Mg Tablet PO 04/22/17 17:59 90 mg BID ZUNILDA (2) Acute ischemic left MCA stroke Is this a current diagnosis for this admission?: Yes Plan: Patient has 24 hours of permissive HTN. BP improved. Likely secondary to atherosclerotic disease of the MCA. Patient has had recent stent and cannot rule out cholesterol emboli. Has a severe left carotid artery stenosis. (3) Afib Qualifiers: Atrial fibrillation type: chronic Qualified Code(s): I48.2 - Chronic atrial fibrillation Is this a current diagnosis for this admission?: Yes Plan: Patient rate controlled on coreg. Continue this and brillinta. (4) Cardiomyopathy Qualifiers: Cardiomyopathy type: ischemic Qualified Code(s): I25.5 - Ischemic cardiomyopathy Is this a current diagnosis for this admission?: Yes (5) Carotid artery stenosis with cerebral infarction less than 8 weeks ago Is this a current diagnosis for this admission?: Yes Plan: Will need outpatient vascular consultation. Will arrange for follow up with vascular surgery. Benefit of CEA in patients with moderate to severe CVA and timing of CEA has not been studied. Patients were not eligible for NASCET or ECST trials. Usually preformed; however, within 6 weeks of CVA. (6) Fever Qualifiers: Fever type: unspecified Qualified Code(s): R50.9 - Fever, unspecified Is this a current diagnosis for this admission?: Yes Plan: Patient has improved greatly on Rocephin. Blood culture still pending. Suspect urinary pathogen. No further fevers. Continue Rocephin for a total of 5 days as there are no cultures for guidance (7) HTN (hypertension) Is this a current diagnosis for this admission?: Yes Plan: Good control. Goal BP less than 140/90. (8) Obesity with serious comorbidity Qualifiers: Obesity type: due to excess calories Obesity classification: adult class 1 (BMI 30 ? 34.9) Body mass index: BMI 30.0-30.9 Qualified Code(s): E66.09 - Other obesity due to excess calories Is this a current diagnosis for this admission?: Yes (9) Chronic systolic (congestive) heart failure Is this a current diagnosis for this admission?: Yes Plan: EF of 30% Euvolemic Generic Name Dose Route Start Last Admin Trade Name Freq PRN Reason Stop Dose Admin Sacubitril/Valsartan 1 tab 03/24/17 10:00 03/26/17 09:53 Entresto 49 Mg/51 Mg Tablet PO 04/23/17 09:59 1 tab DAILY [facility]IL[facility] Carvedilol 25 mg 03/24/17 22:00 03/26/17 09:53 Coreg 12.5 Mg Tablet PO 04/23/17 21:59 25 mg Q12 ZUNILDA Atorvastatin Calcium 80 mg 03/24/17 10:00 03/26/17 09:53 Lipitor 80 Mg Tablet PO 04/23/17 09:59 80 mg DAILY [facility] Aspirin 324 mg 03/24/17 10:00 03/26/17 09:53 Aspirin 81 Mg Chewable Tablet PO 04/23/17 09:59 324 mg DAILY [facility] Ticagrelor 90 mg 03/23/17 18:00 03/26/17 09:53 Brilinta 90 Mg Tablet PO 04/22/17 17:59 90 mg BID [facility] (10) DNR (do not resuscitate) Is this a current diagnosis for this admission?: Yes - Time Time Spent with patient: 25-34 minutes Medications reviewed and adjusted accordingly: Yes Anticipated discharge: Acute Rehab Within: when bed available
[2017-03-27] MEDS: MONTELUKAST SODIUM 10 MG TABLET PO SCH (17:24)
[2017-03-27] MEDS: POTASSIUM CHLORIDE 20 MEQ/15 ML UDCUP PO SCH (22:04)
[2017-03-28] MEDS ORDERED: FUROSEMIDE 20 MG TABLET PO SCH (10:00)
[2017-03-28] MEDS: TICAGRELOR 90 MG TABLET PO SCH ×2 (11:09→18:02)
[2017-03-28] MEDS: SACUBITRIL/VALSARTAN 49 MG/51 MG TABLET PO SCH (11:09)
[2017-03-28] MEDS: ASPIRIN 325 MG TABLET PO SCH (11:11)
[2017-03-28] MEDS: CARVEDILOL 12.5 MG TABLET PO SCH ×2 (11:11→22:36)
[2017-03-28] MEDS: POTASSIUM CHLORIDE 20 MEQ/15 ML UDCUP PO SCH ×2 (11:11→22:36)
[2017-03-28] MEDS: LANSOPRAZOLE 15 MG TAB.RAP.DR PO SCH ×2 (11:12→18:01)
[2017-03-28] MEDS: TAMSULOSIN HCL 0.4 MG CAP.SR.24H PO SCH (11:12)
[2017-03-28] MEDS: ATORVASTATIN CALCIUM 80 MG TABLET PO SCH (11:15)
--- NOTE | 2017-03-28 11:25 | PDOC PROGRESS REPORT ---
Subjective Progress Note for:: 03/28/17 Subjective:: Patient is easily arousable. No acute events overnight. Patient is having significant expressive aphasia. Unable to obtain review of systems 2/2 expressive aphasia. Physical Exam Vital Signs: Temp Pulse Resp BP Pulse Ox 98.5 F 62 19 157/76 H 98 03/28/17 08:07 03/28/17 08:07 03/28/17 08:07 03/28/17 08:07 03/28/17 08:07 Intake & Output 03/27/17 03/28/17 03/29/17 06:59 06:59 06:59 Intake Total 1002 460 Balance 1002 460 Weight 99.6 kg 96.1 kg Exam: GENERAL: No acute distress, awake and alert HEENT: Conjunctiva clear, nonicteric, moist mucous membranes, no JVD, midline trachea RESPIRATORY: Clear to auscultation bilaterally CARDIAC: IRR, +SM, no gallops/rubs ABDOMEN: Soft, NTTP, ND, active bowel sounds, no rebound, no rigidity, no guarding EXTREMETIES: trace edema, no cyanosis, no clubbing NEUROLOGIC: awake, alert, oriented to self, expressive aphasia, Strength 4/5 RLE 3/5 RUE, 5/5 LLE, 5/5 LUE Psych: Normal mood and affect Results Laboratory Results: 03/27/17 05:00 03/27/17 05:00 03/22/17 17:57 Blood Blood Culture - Final NO GROWTH IN 5 DAYS 03/22/17 17:15 Blood Blood Culture - Final Staphylococcus Haemolyticus 03/19/17 06:00 Troponin I 0.039 Impressions: Head CT 03/18/17 14:31 IMPRESSION: Acute nonhemorrhagic left MCA distribution infarct involving the left insular cortex, external capsule and lateral basal ganglia Head CTA 03/19/17 00:00 IMPRESSION: NO CTA EVIDENCE OF STENOSIS OR ANEURYSM OF THE [place]. There is absent or diminished contrast opacification of the more distal portion of the left middle cerebral artery is noted above and there is decrease perfusion of the branches of the left middle cerebral artery. I am uncertain as to whether this is related to an occlusion or stenosis of the distal left middle cerebral artery. Other findings as noted above Neck CTA 03/19/17 00:00 IMPRESSION: There is bilateral calcific atherosclerotic plaquing at the level of the carotid bifurcations as noted above with a high-grade stenosis of the left internal carotid artery at its origin. Other findings as noted above Chest X-Ray 03/23/17 07:00 IMPRESSION: Mild cardiomegaly without evidence of acute cardiopulmonary disease. Assessment & Plan - Diagnosis (1) ASCVD (arteriosclerotic cardiovascular disease) Is this a current diagnosis for this admission?: Yes Plan: Patient with recent stent and defib placement. Patient medications crushed in pudding. Generic Name Dose Route Start Last Admin Trade Name Freq PRN Reason Stop Dose Admin Atorvastatin Calcium 80 mg 03/24/17 10:00 03/27/17 10:59 Lipitor 80 Mg Tablet PO 04/23/17 09:59 80 mg DAILY ZUNILDA Carvedilol 25 mg 03/24/17 22:00 03/27/17 22:04 Coreg 12.5 Mg Tablet PO 04/23/17 21:59 25 mg Q12 ZUNILDA Furosemide 20 mg 03/28/17 09:30 Lasix 20 Mg Tablet PO 04/27/17 09:29 DAILY [facility] Metoprolol Tartrate 2.5 mg 03/18/17 18:25 Lopressor Inj/Pf 5 Mg/5 Ml Sdv IV 04/17/17 18:24 Q6HP PRN Ticagrelor 90 mg 03/23/17 18:00 03/27/17 17:24 Brilinta 90 Mg Tablet PO 04/22/17 17:59 90 mg BID [facility] Sacubitril/Valsartan 1 tab 03/24/17 10:00 03/27/17 10:59 Entresto 49 Mg/51 Mg Tablet PO 04/23/17 09:59 1 tab DAILY [facility] (2) Acute ischemic left MCA stroke Is this a current diagnosis for this admission?: Yes Plan: Patient has 24 hours of permissive HTN. BP improved. Likely secondary to atherosclerotic disease of the MCA. Patient has had recent stent and cannot rule out cholesterol emboli. Has a severe left carotid artery stenosis. Will give follow up information with vascular surgery. (3) Afib Qualifiers: Atrial fibrillation type: chronic Qualified Code(s): I48.2 - Chronic atrial fibrillation Is this a current diagnosis for this admission?: Yes Plan: Patient rate controlled on coreg. Continue this and brillinta. (4) Cardiomyopathy Qualifiers: Cardiomyopathy type: ischemic Qualified Code(s): I25.5 - Ischemic cardiomyopathy Is this a current diagnosis for this admission?: Yes (5) Carotid artery stenosis with cerebral infarction less than 8 weeks ago Is this a current diagnosis for this admission?: Yes Plan: Will need outpatient vascular consultation. Will arrange for follow up with vascular surgery. Benefit of CEA in patients with moderate to severe CVA and timing of CEA has not been studied. Patients were not eligible for NASCET or ECST trials. Usually preformed; however, within 6 weeks of CVA. (6) Fever Qualifiers: Fever type: unspecified Qualified Code(s): R50.9 - Fever, unspecified Is this a current diagnosis for this admission?: Yes Plan: Patient has improved greatly on Rocephin. Blood culture still pending. Suspect urinary pathogen. No further fevers. Continue Rocephin for a total of 5 days as there are no cultures for guidance. On day #4 of Rocephin Generic Name Dose Route Start Last Admin Trade Name Freq PRN Reason Stop Dose Admin Ceftriaxone Sodium/Dextrose 1 gm in 50 mls @ 100 mls/hr 03/24/17 14:00 14:11 Rocephin Rtu 1 Gm/D5w 50 Ml Premix IV 03/31/17 13:59 50 ml DAILY@1400 ZUNILDA (7) HTN (hypertension) Is this a current diagnosis for this admission?: Yes Plan: Good control. Goal BP less than 140/90. (8) Obesity with serious comorbidity Qualifiers: Obesity type: due to excess calories Obesity classification: adult class 1 (BMI 30 ? 34.9) Body mass index: BMI 30.0-30.9 Qualified Code(s): E66.09 - Other obesity due to excess calories Is this a current diagnosis for this admission?: Yes (9) Chronic systolic (congestive) heart failure Is this a current diagnosis for this admission?: Yes Plan: EF of 30% Euvolemic, but suspect beginning to accumulate fluid due to hypertension Poor respiratory effort Generic Name Dose Route Start Last Admin Trade Name Freq PRN Reason Stop Dose Admin Atorvastatin Calcium 80 mg 03/24/17 10:00 03/28/17 11:15 Lipitor 80 Mg Tablet PO 04/23/17 09:59 80 mg DAILY ZUNILDA Carvedilol 25 mg 03/24/17 22:00 03/28/17 11:11 Coreg 12.5 Mg Tablet PO 04/23/17 21:59 25 mg Q12 ZUNILDA Aspirin 325 mg 03/27/17 10:00 03/28/17 11:11 Aspirin 325 Mg Tablet PO 04/26/17 09:59 325 mg DAILY ZUNILDA Furosemide 20 mg 03/28/17 10:00 03/28/17 11:12 Lasix 20 Mg Tablet PO 04/27/17 09:59 20 mg DAILY [facility]IL[facility] Metoprolol Tartrate 2.5 mg 03/18/17 18:25 Lopressor Inj/Pf 5 Mg/5 Ml Sdv IV 04/17/17 18:24 Q6HP PRN Sacubitril/Valsartan 1 tab 03/24/17 10:00 03/28/17 11:09 Entresto 49 Mg/51 Mg Tablet PO 04/23/17 09:59 1 tab DAILY [facility]UNIL[facility] Ticagrelor 90 mg 03/23/17 18:00 03/28/17 11:09 Brilinta 90 Mg Tablet PO 04/22/17 17:59 90 mg BID [facility] (10) DNR (do not resuscitate) Is this a current diagnosis for this admission?: Yes - Time Time Spent with patient: 25-34 minutes Medications reviewed and adjusted accordingly: Yes Anticipated discharge: Acute Rehab Within: when bed available - Plan Summary Plan Summary: Patient doing well pending bed assignment at [facility] for rehab.
[2017-03-28 12:03] LABS: ANION GAP 10 (5-19); BLOOD UREA NITROGEN 20 mg/dL (7-20); CALCIUM 9.4 mg/dL (8.4-10.2); CARBON DIOXIDE 25 mmol/L (22-30); CHLORIDE 106 mmol/L (98-107); CREATININE RESULT 1.09 mg/dL (0.52-1.25); GLUCOSE 120 mg/dL (75-110); POTASSIUM 3.5 mmol/L (3.6-5.0); SODIUM 140.8 mmol/L (137-145)
[2017-03-28] MEDS: CEFTRIAXONE 1 GM/D5W RTU 1 GM/50 ML RTUPB IV SCH (14:26)
[2017-03-28] MEDS: MONTELUKAST SODIUM 10 MG TABLET PO SCH (18:01)
[2017-03-29 09:46] LABS: ABSOLUTE BASOPHILS # (AUTO) 0.1 10^3/uL (0.0-0.2); ABSOLUTE EOSINOPHILS # (AUTO) 0.3 10^3/uL (0.0-0.6); ABSOLUTE LYMPHOCYTES (AUTO) 0.7 10^3/uL (0.5-4.7); ABSOLUTE NEUT (AUTO) 7.3 10^3/uL (1.7-8.2); BASOPHILS % (AUTO) 0.8 % (0-2); EOSINOPHILS % (AUTO) 3.3 % (0-6); HEMATOCRIT 43.9 % (37.9-51.0); HEMOGLOBIN 14.4 g/dL (13.5-17.0); HGB HCT DIFFERENCE -0.7; LYMPHOCYTES % (AUTO) 7.3 % (13-45); MEAN CORPUSCULAR HGB CONC 32.9 g/dL (32.0-36.0); MEAN CORPUSCULAR VOLUME 85 fl (80-97); MONOCYTES % (AUTO) 10.9 % (3-13); RED BLOOD COUNT 5.15 10^6/uL (4.35-5.55); RED CELL DISTRIBUTION WIDTH 16.7 % (11.5-14.0); SEGMENTED NEUTROPHILS % (AUTO) 77.7 % (42-78); WHITE BLOOD COUNT 9.4 10^3/uL (4.0-10.5)
[2017-03-29 10:05] LABS: ANION GAP 13 (5-19); BLOOD UREA NITROGEN 31 mg/dL (7-20); CALCIUM 9.4 mg/dL (8.4-10.2); CARBON DIOXIDE 22 mmol/L (22-30); CHLORIDE 106 mmol/L (98-107); CREATININE RESULT 1.73 mg/dL (0.52-1.25); GLUCOSE 122 mg/dL (75-110); POTASSIUM 4.3 mmol/L (3.6-5.0); SODIUM 140.5 mmol/L (137-145)
[2017-03-29] MEDS ORDERED: NORMAL SALINE 1000 ML 1,000 ML IV PRN (10:46)
[2017-03-29] MEDS ORDERED: BISACODYL 10 MG SUPP.RECT PR PRN (11:03)
[2017-03-29] MEDS ORDERED: BISACODYL 10 MG SUPP.RECT PR ONE (11:03)
[2017-03-29] MEDS: ASPIRIN 325 MG TABLET PO SCH (11:50)
[2017-03-29] MEDS: LANSOPRAZOLE 15 MG TAB.RAP.DR PO SCH ×2 (11:50→18:49)
[2017-03-29] MEDS: SACUBITRIL/VALSARTAN 49 MG/51 MG TABLET PO SCH (11:50)
[2017-03-29] MEDS: ATORVASTATIN CALCIUM 80 MG TABLET PO SCH (11:50)
[2017-03-29] MEDS: CARVEDILOL 12.5 MG TABLET PO SCH (11:50)
[2017-03-29] MEDS: TICAGRELOR 90 MG TABLET PO SCH ×2 (12:21→18:49)
[2017-03-29] MEDS: NORMAL SALINE 1000 ML 1,000 ML IV PRN ×2 (12:23→20:38)
[2017-03-29] MEDS ORDERED: NORMAL SALINE 1000 ML 500 ML IV ONE (13:39)
[2017-03-29] MEDS ORDERED: CARVEDILOL 12.5 MG TABLET PO SCH (13:47)
--- NOTE | 2017-03-29 13:49 | PDOC PROGRESS REPORT ---
Subjective Progress Note for:: 03/29/17 Subjective:: Patient has not had a BM since admission. Patient would not take am medications due to nausea. Patient has had poor oral intake. Still with severe expressive aphasia, unable to obtain ROS due to this. Physical Exam Vital Signs: Temp Pulse Resp BP Pulse Ox 98.5 F 72 19 114/58 L 96 03/29/17 07:56 03/29/17 07:56 03/29/17 07:56 03/29/17 07:56 03/29/17 07:56 Intake & Output 03/28/17 03/29/17 03/30/17 06:59 06:59 06:59 Intake Total 460 56 Balance 460 56 Weight 96.1 kg 97.4 kg Exam: GENERAL: No acute distress, awake and alert HEENT: mucosa dry, Conjunctiva clear, nonicteric, no JVD, midline trachea RESPIRATORY: Clear to auscultation bilaterally CARDIAC: irregular, +SM, no gallops/rubs ABDOMEN: Soft, NTTP, ND, active bowel sounds, no rebound, no rigidity, no guarding EXTREMETIES: no edema, no cyanosis, no clubbing NEUROLOGIC: awake, alert, oriented to self, expressive aphasia, Strength 4/5 RLE 3/5 RUE, 5/5 LLE, 5/5 LUE Psych: Normal mood and affect Results Laboratory Results: 03/29/17 09:00 03/29/17 09:00 03/28/17 03/29/17 03/29/17 10:01 09:00 09:00 WBC 9.4 RBC 5.15 Hgb 14.4 Hct 43.9 MCV 85 MCH 28.0 MCHC 32.9 RDW 16.7 H Plt Count 364 Seg Neutrophils % 77.7 Lymphocytes % 7.3 L Monocytes % 10.9 Eosinophils % 3.3 Basophils % 0.8 Absolute Neutrophils 7.3 Absolute Lymphocytes 0.7 Absolute Monocytes 1.0 Absolute Eosinophils 0.3 Absolute Basophils 0.1 Sodium 140.8 140.5 Potassium 3.5 L 4.3 Chloride 106 106 Carbon Dioxide 25 22 Anion Gap 10 13 BUN 20 31 H Creatinine 1.09 1.73 H Est GFR ( Amer) > 60 46 L Est GFR (Non-Af Amer) > 60 38 L Glucose 120 H 122 H Calcium 9.4 9.4 03/19/17 06:00 Troponin I 0.039 Impressions: Head CT 03/18/17 14:31 IMPRESSION: Acute nonhemorrhagic left MCA distribution infarct involving the left insular cortex, external capsule and lateral basal ganglia Head CTA 03/19/17 00:00 IMPRESSION: NO CTA EVIDENCE OF STENOSIS OR ANEURYSM OF THE [place]. There is absent or diminished contrast opacification of the more distal portion of the left middle cerebral artery is noted above and there is decrease perfusion of the branches of the left middle cerebral artery. I am uncertain as to whether this is related to an occlusion or stenosis of the distal left middle cerebral artery. Other findings as noted above Neck CTA 03/19/17 00:00 IMPRESSION: There is bilateral calcific atherosclerotic plaquing at the level of the carotid bifurcations as noted above with a high-grade stenosis of the left internal carotid artery at its origin. Other findings as noted above Chest X-Ray 03/23/17 07:00 IMPRESSION: Mild cardiomegaly without evidence of acute cardiopulmonary disease. Assessment & Plan - Diagnosis (1) ASCVD (arteriosclerotic cardiovascular disease) Is this a current diagnosis for this admission?: Yes Plan: Patient with recent stent and defib placement. Patient medications crushed in pudding with hold parameters. (2) Acute ischemic left MCA stroke Is this a current diagnosis for this admission?: Yes Plan: Patient has 24 hours of permissive HTN. BP improved. Likely secondary to atherosclerotic disease of the MCA. Patient has had recent stent and cannot rule out cholesterol emboli. Has a severe left carotid artery stenosis. Will give follow up information with vascular surgery. (3) Afib Qualifiers: Atrial fibrillation type: chronic Qualified Code(s): I48.2 - Chronic atrial fibrillation Is this a current diagnosis for this admission?: Yes Plan: Patient rate controlled on coreg. Continue this and brillinta. (4) Cardiomyopathy Qualifiers: Cardiomyopathy type: ischemic Qualified Code(s): I25.5 - Ischemic cardiomyopathy Is this a current diagnosis for this admission?: Yes (5) Carotid artery stenosis with cerebral infarction less than 8 weeks ago Is this a current diagnosis for this admission?: Yes Plan: Will need outpatient vascular consultation. Will arrange for follow up with vascular surgery. Benefit of CEA in patients with moderate to severe CVA and timing of CEA has not been studied. Patients were not eligible for NASCET or ECST trials. Usually preformed; however, within 6 weeks of CVA. (6) Fever Qualifiers: Fever type: unspecified Qualified Code(s): R50.9 - Fever, unspecified Is this a current diagnosis for this admission?: Yes (7) HTN (hypertension) Is this a current diagnosis for this admission?: Yes Plan: Good control. Goal BP less than 140/90. (8) Chronic systolic (congestive) heart failure Is this a current diagnosis for this admission?: Yes Plan: EF of 30% Euvolemic to dehydrated (9) JEANNETTE (acute kidney injury) Is this a current diagnosis for this admission?: Yes Plan: Secondary to poor p.o. intake and use of Lasix. Patient is down 3 kg from admission. Will give bolus and run fluids at 83 cc an hour. (10) DNR (do not resuscitate) Is this a current diagnosis for this admission?: Yes (11) Obesity with serious comorbidity Qualifiers: Obesity type: due to excess calories Obesity classification: adult class 1 (BMI 30 ? 34.9) Body mass index: BMI 30.0-30.9 Qualified Code(s): E66.09 - Other obesity due to excess calories Is this a current diagnosis for this admission?: Yes - Time Time Spent with patient: 25-34 minutes Medications reviewed and adjusted accordingly: Yes Anticipated discharge: Acute Rehab Within: when bed available
[2017-03-29] MEDS ORDERED: TAMSULOSIN HCL 0.4 MG CAP.SR.24H PO SCH (18:00)
[2017-03-29] MEDS ORDERED: NORMAL SALINE 500 ML IV ONE (18:23)
[2017-03-29] MEDS: MONTELUKAST SODIUM 10 MG TABLET PO SCH (18:49)
[2017-03-30 05:56] LABS: ANION GAP 9 (5-19); BLOOD UREA NITROGEN 31 mg/dL (7-20); CALCIUM 8.9 mg/dL (8.4-10.2); CARBON DIOXIDE 24 mmol/L (22-30); CHLORIDE 109 mmol/L (98-107); CREATININE RESULT 1.46 mg/dL (0.52-1.25); GLUCOSE 102 mg/dL (75-110); MAGNESIUM 2.2 mg/dL (1.6-2.3); PHOSPHORUS 4.2 mg/dL (2.5-4.5); POTASSIUM 3.7 mmol/L (3.6-5.0)
[2017-03-30] MEDS ORDERED: NORMAL SALINE 1000 ML 500 ML IV ONE (07:37)
[2017-03-30] MEDS ORDERED: NORMAL SALINE 1000 ML 1,000 ML IV PRN ×2 (08:03→14:46)
[2017-03-30] MEDS: ATORVASTATIN CALCIUM 80 MG TABLET PO SCH (10:53)
[2017-03-30] MEDS: SACUBITRIL/VALSARTAN 49 MG/51 MG TABLET PO SCH (10:54)
[2017-03-30] MEDS: ASPIRIN 325 MG TABLET PO SCH (10:54)
[2017-03-30] MEDS: LANSOPRAZOLE 15 MG TAB.RAP.DR PO SCH ×2 (10:54→17:29)
[2017-03-30] MEDS: TICAGRELOR 90 MG TABLET PO SCH ×2 (10:54→17:29)
[2017-03-30] MEDS ORDERED: CEFTRIAXONE 1 GM/D5W RTU 1 GM/50 ML RTUPB IV SCH (14:00)
--- NOTE | 2017-03-30 16:06 | PDOC PROGRESS REPORT ---
Subjective Progress Note for:: 03/30/17 Subjective:: Patient still with marginal po intake. Only a smear from enema today. Nods head yes that he is feeling better. Still with severe expressive aphasia, unable to obtain ROS due to this. Physical Exam Vital Signs: Temp Pulse Resp BP Pulse Ox 98.5 F 85 20 118/66 95 03/30/17 11:12 03/30/17 11:12 03/30/17 11:12 03/30/17 11:12 03/30/17 11:12 Intake & Output 03/29/17 03/30/17 03/31/17 06:59 06:59 06:59 Intake Total 56 1974 50 Output Total 350 Balance 56 1624 50 Weight 97.4 kg 98.3 kg Exam: GENERAL: No acute distress, awake and alert HEENT: mucosa moist, Conjunctiva clear, nonicteric, no JVD, midline trachea RESPIRATORY: Clear to auscultation bilaterally CARDIAC: irregular, +SM, no gallops/rubs ABDOMEN: Soft, NTTP, ND, active bowel sounds, no rebound, no rigidity, no guarding EXTREMETIES: no edema, no cyanosis, no clubbing NEUROLOGIC: awake, alert, oriented to self, expressive aphasia, Strength 4/5 RLE 3/5 RUE, 5/5 LLE, 5/5 LUE Psych: Normal mood and affect Results Laboratory Results: 03/29/17 09:00 03/30/17 04:24 03/30/17 04:24 Sodium 142.0 Potassium 3.7 Chloride 109 H Carbon Dioxide 24 Anion Gap 9 BUN 31 H Creatinine 1.46 H Est GFR ( Amer) 56 L Est GFR (Non-Af Amer) 47 L Glucose 102 Calcium 8.9 Phosphorus 4.2 Magnesium 2.2 03/19/17 06:00 Troponin I 0.039 Impressions: Head CT 03/18/17 14:31 IMPRESSION: Acute nonhemorrhagic left MCA distribution infarct involving the left insular cortex, external capsule and lateral basal ganglia Head CTA 03/19/17 00:00 IMPRESSION: NO CTA EVIDENCE OF STENOSIS OR ANEURYSM OF THE [place]. There is absent or diminished contrast opacification of the more distal portion of the left middle cerebral artery is noted above and there is decrease perfusion of the branches of the left middle cerebral artery. I am uncertain as to whether this is related to an occlusion or stenosis of the distal left middle cerebral artery. Other findings as noted above Neck CTA 03/19/17 00:00 IMPRESSION: There is bilateral calcific atherosclerotic plaquing at the level of the carotid bifurcations as noted above with a high-grade stenosis of the left internal carotid artery at its origin. Other findings as noted above Chest X-Ray 03/23/17 07:00 IMPRESSION: Mild cardiomegaly without evidence of acute cardiopulmonary disease. Assessment & Plan - Diagnosis (1) ASCVD (arteriosclerotic cardiovascular disease) Is this a current diagnosis for this admission?: Yes Plan: Patient with recent stent and defib placement. Patient medications crushed in pudding with hold parameters. (2) Acute ischemic left MCA stroke Is this a current diagnosis for this admission?: Yes Plan: Patient has 24 hours of permissive HTN. BP improved. Likely secondary to atherosclerotic disease of the MCA. Patient has had recent stent and cannot rule out cholesterol emboli. Has a severe left carotid artery stenosis. Will give follow up information with vascular surgery. (3) Afib Qualifiers: Atrial fibrillation type: chronic Qualified Code(s): I48.2 - Chronic atrial fibrillation Is this a current diagnosis for this admission?: Yes Plan: Patient rate controlled on coreg. Continue this and brillinta. (4) Cardiomyopathy Qualifiers: Cardiomyopathy type: ischemic Qualified Code(s): I25.5 - Ischemic cardiomyopathy Is this a current diagnosis for this admission?: Yes (5) Carotid artery stenosis with cerebral infarction less than 8 weeks ago Is this a current diagnosis for this admission?: Yes Plan: Will need outpatient vascular consultation. Will arrange for follow up with vascular surgery. Benefit of CEA in patients with moderate to severe CVA and timing of CEA has not been studied. Patients were not eligible for NASCET or ECST trials. Usually preformed; however, within 6 weeks of CVA. (6) Fever Qualifiers: Fever type: unspecified Qualified Code(s): R50.9 - Fever, unspecified Is this a current diagnosis for this admission?: Yes Plan: Patient has improved greatly on Rocephin. Blood culture still pending. Suspect urinary pathogen. No further fevers. Continue Rocephin for a total of 5 days as there are no cultures for guidance. On day #5 of Rocephin (7) HTN (hypertension) Is this a current diagnosis for this admission?: Yes (8) Chronic systolic (congestive) heart failure Is this a current diagnosis for this admission?: Yes (9) JEANNETTE (acute kidney injury) Is this a current diagnosis for this admission?: Yes Plan: Improving, but not yet back to baseline Secondary to poor p.o. intake and use of Lasix. Patient is down 3 kg from admission. Will give bolus and run fluids at 63 cc an hour. (10) DNR (do not resuscitate) Is this a current diagnosis for this admission?: Yes (11) Obesity with serious comorbidity Qualifiers: Obesity type: due to excess calories Obesity classification: adult class 1 (BMI 30 ? 34.9) Body mass index: BMI 30.0-30.9 Qualified Code(s): E66.09 - Other obesity due to excess calories Is this a current diagnosis for this admission?: Yes - Time Time Spent with patient: 35 or more minutes Medications reviewed and adjusted accordingly: Yes - Plan Summary Plan Summary: At this time, I have discussed with his family specifically his son Kalyan and his son Jacky who is a family practice physician, their father's overall course and his poor oral intake. At this time they are going to discuss with her other 2 brothers the idea of comfort measures and will likely according to Jacky agree on comfort measures for this patient. Patient was previously a DNR and all sons have expressed consistently that their father would not want to live persistently in the state that he is currently in. At this time, we will continue with IV fluids until a decision is made. Anticipate that this will be done in the next 24-48 hours.
[2017-03-30] MEDS: MONTELUKAST SODIUM 10 MG TABLET PO SCH (17:29)
[2017-03-30] MEDS ORDERED: TAMSULOSIN HCL 0.4 MG CAP.SR.24H PO SCH (18:00)
[2017-03-30] MEDS: CARVEDILOL 3.125 MG TABLET PO SCH (21:22)
[2017-03-31] MEDS: ATORVASTATIN CALCIUM 80 MG TABLET PO SCH (09:18)
[2017-03-31] MEDS: ASPIRIN 325 MG TABLET PO SCH (09:18)
[2017-03-31] MEDS: TICAGRELOR 90 MG TABLET PO SCH (09:19)
[2017-03-31] MEDS: LANSOPRAZOLE 15 MG TAB.RAP.DR PO SCH (09:20)
[2017-03-31] MEDS: CARVEDILOL 3.125 MG TABLET PO SCH (09:20)
[2017-03-31] MEDS: SACUBITRIL/VALSARTAN 49 MG/51 MG TABLET PO SCH (09:22)
[2017-03-31 11:03] LABS: ANION GAP 10 (5-19); BLOOD UREA NITROGEN 28 mg/dL (7-20); CALCIUM 9.1 mg/dL (8.4-10.2); CARBON DIOXIDE 22 mmol/L (22-30); CHLORIDE 110 mmol/L (98-107); CREATININE RESULT 1.25 mg/dL (0.52-1.25); GLUCOSE 139 mg/dL (75-110); SODIUM 141.5 mmol/L (137-145)
--- NOTE | 2017-03-31 11:10 | PDOC TRANSFER SUMMARY ---
General - Admit/Disc Date/PCP Admission Date/Primary Care Provider: 03/18/17 18:16 Discharge Date: 03/31/17 - Discharge Diagnosis (1) Acute ischemic left MCA stroke Is this a current diagnosis for this admission?: Yes (2) Carotid artery stenosis with cerebral infarction less than 8 weeks ago Is this a current diagnosis for this admission?: Yes (3) ASCVD (arteriosclerotic cardiovascular disease) Is this a current diagnosis for this admission?: Yes (4) Afib Is this a current diagnosis for this admission?: Yes (5) Cardiomyopathy Is this a current diagnosis for this admission?: Yes (6) Fever Is this a current diagnosis for this admission?: Yes (7) HTN (hypertension) Is this a current diagnosis for this admission?: Yes (8) Chronic systolic (congestive) heart failure Is this a current diagnosis for this admission?: Yes (9) JEANNETTE (acute kidney injury) Is this a current diagnosis for this admission?: Yes (10) Obesity with serious comorbidity Is this a current diagnosis for this admission?: Yes (11) DNR (do not resuscitate) Is this a current diagnosis for this admission?: Yes - Additional Information Resuscitation Status: Full Code Discharge Diet: Regular, Other (Comments) - pureed, honey thickened liquids, 1: 1 feeds Discharge Activity: Activity As Tolerated, Supervised Activity Home Medications: Montelukast Sodium [Singulair 10 mg Tablet] 10 mg PO QPM 03/18/17 Omeprazole 20 mg PO BID 03/18/17 Sacubitril/Valsartan [Entresto 49 mg/51 mg Tablet] 1 tab PO DAILY 03/18/17 Ticagrelor [Brilinta 90 mg Tablet] 90 mg PO BID 03/18/17 Aspirin [Aspirin 325 mg Tablet] 325 mg PO DAILY tablet 03/31/17 Atorvastatin Calcium [Lipitor 80 mg Tablet] 80 mg PO DAILY tablet 03/31/17 Bisacodyl [Dulcolax 10 mg Supp.rect] 10 mg TN DAILYP PRN supp.rect 03/31/17 Carvedilol [Coreg 3.125 mg Tablet] 3.125 mg PO Q12 tablet 03/31/17 Tamsulosin HCl [Flomax 0.4 mg Cap.sr] 0.4 mg PO PCSUPPER cap.sr.24h 03/31/17 History of Present Illness Admission Date/PCP: 03/18/17 18:16 History of Present Illness: KEVAN LACKEY is a 81 year old male with multiple medical problems dominated by recent (06/2016) cardiac arrest due to LAD occlusion saved by emergent PTCA and stenting at [facility] but with complicated recovery due to new onset afib, 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 He is normally very active now, engaged in swimming at the pool for exercise and to aid in weight loss and recovery. He was last seen and heard from the evening before presentation by his live-in grandson, who would normally spend the night but did not due to personal reasons and who arrived the morning of 03/18 only to find his grandfather lying on the bathroom floor grunting and unable to move. His eyes were open but he didn't seem to respond, couldn't talk and EMS called to find him with Rt hemiparesis and hemineglect transporting him to the hospital. CT head shows no bleed but suspicion for Lf MCA distribution acute infarct involving multiple regions/lobes as likely explanation. He is well outside the window for TPA and not a candidate anyway due to ongoing Brillinta use and recent GIB. We were asked to admit the patient for further eval and management. He remains nonverbal so hx is obtained from review of the chart and his son. Hospital Course Hospital Course: Patient patient underwent echocardiogram which revealed an EF of 30%, severe global hypokinesis of the left ventricle, no gross thrombus, mild mitral regurgitation, mild pulmonary hypertension. CTA of the head and neck reveals no stenosis of the [place] of [place], but moderate to severe stenosis of the left internal carotid artery. Patient did develop a small fever and leukocytosis, but cultures were negative. Patient was placed empirically on Rocephin and treated for 5 days with this. This was felt to be secondary to a likely UTI. Patient was admitted but showed very minimal appreciable improvement over the last 2 weeks. Patient was evaluated by physical therapy, occupational therapy, and speech therapy. Family was amenable to rehab. They however, would prefer that patient be transitioned to hospice if he declines or fails rehab or becomes acutely ill as opposed to being returned to the hospital. We will place a palliative care consult for them to follow along in the facility. Patient's home medications were restarted, and at this time he does not require Lasix, which caused minor acute kidney injury which resolved with fluids. I discussed the idea of warfarin with his son who is a physician, and at this time we have elected to continue patient on Brilinta and aspirin Due to the recent stent placement. Patient is at high risk for repeat CVA. Patient is currently stable for discharge to rehab. Physical Exam Vital Signs: Temp Pulse Resp BP Pulse Ox 98.7 F 95 19 145/76 H 95 03/31/17 07:22 03/31/17 07:22 03/31/17 07:22 03/31/17 07:22 03/31/17 07:22 Intake & Output 03/30/17 03/31/17 04/01/17 06:59 06:59 06:59 Intake Total 1973 1926 Output Total 350 Balance [id number] Weight 98.3 kg 100.1 kg Exam: GENERAL: No acute distress, awake and alert HEENT: mucosa moist, Conjunctiva clear, nonicteric, no JVD, midline trachea RESPIRATORY: Clear to auscultation bilaterally CARDIAC: irregular, +SM, no gallops/rubs ABDOMEN: Soft, NTTP, ND, active bowel sounds, no rebound, no rigidity, no guarding EXTREMETIES: no edema, no cyanosis, no clubbing NEUROLOGIC: awake, alert, oriented to self, expressive aphasia, Strength 4/5 RLE 3/5 RUE, 5/5 LLE, 5/5 LUE Psych: Normal mood and affect Results Laboratory Results: 03/29/17 09:00 03/30/17 04:24 03/19/17 06:00 Troponin I 0.039 Impressions: Head CT 03/18/17 14:31 IMPRESSION: Acute nonhemorrhagic left MCA distribution infarct involving the left insular cortex, external capsule and lateral basal ganglia Head CTA 03/19/17 00:00 IMPRESSION: NO CTA EVIDENCE OF STENOSIS OR ANEURYSM OF THE [place] OF [place]. There is absent or diminished contrast opacification of the more distal portion of the left middle cerebral artery is noted above and there is decrease perfusion of the branches of the left middle cerebral artery. I am uncertain as to whether this is related to an occlusion or stenosis of the distal left middle cerebral artery. Other findings as noted above Neck CTA 03/19/17 00:00 IMPRESSION: There is bilateral calcific atherosclerotic plaquing at the level of the carotid bifurcations as noted above with a high-grade stenosis of the left internal carotid artery at its origin. Other findings as noted above Chest X-Ray 03/23/17 07:00 IMPRESSION: Mild cardiomegaly without evidence of acute cardiopulmonary disease. Transfer Plan - Time Spent with Patient Time spent with patient: Less than 30 Minutes Qualifiers PATEINT BEING DISCHARGED WITH ANY OF THE FOLLOWING DIAGNOSIS?: Stroke Stroke Pt being discharged on Anti-thrombolytic therapy?: Yes Stroke Pt being discharged on Anti-coagulation therapy?: Yes Stroke Pt being discharged on Statins?: Yes Plan Time Spent: Greater than 30 Minutes
[2017-03-31 11:50] VITALS: BP 121/68
== END 2017-03-31 15:06 | DRG 65 ==
LOC: ER 14:26 → EH 17:03 → UNDOADMIN 17:03 → EH 18:16 → 3S 03-19 00:18 → 3W 03-23 17:15
PROVIDERS: ADMIT Internal Medicine; ATTEND Internal Medicine
DX: I63.8 Other cerebral infarction (principal); G81.91 Hemiplegia, unspecified affecting right dominant side; N17.9 Acute kidney failure, unspecified; I50.22 Chronic systolic (congestive) heart failure; I25.5 Ischemic cardiomyopathy; I48.2 Chronic atrial fibrillation; Z66 Do not resuscitate; I25.10 Atherosclerotic heart disease of native coronary artery without angina pectoris; I10 Essential (primary) hypertension; E66.9 Obesity, unspecified; Z68.31 Body mass index [BMI] 31.0-31.9, adult; Z79.899 Other long term (current) drug therapy; Z79.82 Long term (current) use of aspirin
CPT/HCPCS: 36415; 70450; 70496; 70498; 71010; 80048; 80053; 80061; 81001; 82550; 82553; 82803; 82962; 83036; 83605; 83735; 84100; 84484; 85025; 85027; 85610; 85730; 87040; 87077; 87186; 93005; 93010; 93306; 99285; G8978-GP; G8979-GP; G8996-GN; G8997-GN; J0696; J1650; J2405; J3411; J3475; J3480; J3490; J7030; J7040; S0164